=== PATIENT | female | born 1940 | race Caucasian/White ===

== ENCOUNTER 2016-08-22 05:24 | Observation (INO) | payer OTHER ==
[2016-08-22] VITALS (17 sets, daily range): BP systolic 70–155; BP diastolic 40–80; PULSE 72–98; RESP 16–22; TEMP 97.3–98.6; O2SAT 87–100
[~2016-08-22] VITALS: Ht 167.6 cm; Wt 60.0 kg
[~2016-08-22 05:24] MED LIST: ADVA500A INH; ALBU.5I NEB; ALBU6.7H INH; ALPR0.25 PO; ATOR10TA15 PO; ATRO1SOL11 LEFT EYE; B-122000 PO; BUTA1CAP PO; COLA100C3 PO; COMB0.2S LEFT EYE; CYMB60CA PO; D31000TA PO; FURO1TAB62 PO; GABA100C4 PO; LEVO125T4 PO; LISI-515 PO; META0.52 PO; MIRA33504 PO; PLAV75TA29 PO; POTA10TA8 PO; PROT40TA PO; SPIRCAP INH; TRAZ100T4 PO; VITATAB11 PO
[2016-08-22] MEDS ORDERED: SODIUM CHLOR 0.9% 1000 ML INJ 1,000 ML IV ONE (05:29)
[2016-08-22] MEDS ORDERED: SODIUM CHLORIDE 0.9% FLUSH 10 ML FLUSH IVF PRN (05:30)
[2016-08-22] MEDS ORDERED: ONDANSETRON HCL 4 MG/2 ML VIAL IVP ONE (05:30)
[2016-08-22] MEDS ORDERED: AMOX500T2 PO (05:39)
[2016-08-22] MEDS ORDERED: CEFEPIME INJ 2,000 MG in SODIUM CHLORIDE 0.9% INJ 100 ML IV ONE (06:00)
[2016-08-22] MEDS ORDERED: VANCOMYCIN INJ 1,000 MG in SODIUM CHLOR 0.9% 250 ML INJ 250 ML IV ONE (06:00)
[2016-08-22] MEDS ORDERED: ONDANSETRON HCL 4 MG/2 ML VIAL IV PUSH ONE (06:15)
--- NOTE | 2016-08-22 06:19 | RADRPT ---
EXAM DATE/TIME: 08/22/2016 06:09 [facility] COMPARISON: CT BRAIN W/O CONTRAST, November 05, 2013, 13:46. INDICATIONS : Altered mental status. RADIATION DOSE: 31.06 CTDIvol (mGy) MEDICAL HISTORY : Myocardial infarction. Chronic obstructive pulmonary disease. Cardiovascular disease SURGICAL HISTORY : Hysterectomy. Rt hip surgery ENCOUNTER: Initial ACUITY: 1 day PAIN SCALE: 0/10 LOCATION: cranial TECHNIQUE: Multiple contiguous axial images were obtained of the head. Using automated exposure control and adj ustment of the mA and/or kV according to patient size, radiation dose was kept as low as reasonably a chievable to obtain optimal diagnostic quality images. FINDINGS: CEREBRUM: The ventricles are normal for age. No evidence of midline shift, mass lesion, hemorrhage or acute in farction. No extra-axial fluid collections are seen. Chronic low attenuation again seen in the periv entricular white matter and old, small basal ganglia lacunar infarcts. POSTERIOR FOSSA: The cerebellum and brainstem are intact. The 4th ventricle is midline. The cerebellopontine angle i s unremarkable. EXTRACRANIAL: Chronic sclerosis of the right mastoid bone. Visualized left mastoid air cells and paranasal sinuses are clear. SKULL: The calvaria is intact. No evidence of skull fracture. CONCLUSION: No acute intracranial abnormality. Old basal ganglia and white matter ischemic changes. Lawson Smith MD on August 22, 2016 at 6:16 Board Certified Radiologist. This report was verified electronically.
--- NOTE | 2016-08-22 06:28 | RADRPT ---
EXAM DATE/TIME: 08/22/2016 05:42 [facility] COMPARISON: CHEST SINGLE AP, February 14, 2015, 15:24. INDICATIONS : Shortness of breath. MEDICAL HISTORY : Chronic obstructive pulmonary disease. Myocardial infarction. SURGICAL HISTORY : Hysterectomy. ENCOUNTER: Initial ACUITY: 1 day PAIN SCORE: 0/10 LOCATION: Bilateral chest FINDINGS: No infiltrate. Mild bibasilar scarring noted. No definite pleural fluid. No pneumothorax. Heart size stable, within normal limits. Thoracic aorta is mildly tortuous. CONCLUSION: No acute cardiopulmonary disease demonstrated. Lawosn Smith MD on August 22, 2016 at 6:25 Board Certified Radiologist. This report was verified electronically.
[2016-08-22] MEDS ORDERED: SODIUM CHLORID 0.9% 500 ML INJ 500 ML IV ONE (06:30)
--- NOTE | 2016-08-22 06:54 | PD ---
HPI Chief Complaint: Altered Mental Status Time Seen by Provider: 05:29 Travel History International Travel<30 days: No Contact w/Intl Traveler<30days: No Traveled to known affect area: No History of Present Illness HPI 76-year-old female presents to the emergency department from home by EMS transport after being found unresponsive in the bathroom. According to border measurer and cutter report has been called after he found his sitting on the toilet unresponsive. Upon their arrival patient was unresponsive they placed her supine and her GCS was 5 days administered IV fluids and her GCS improved to 12. Patient had blood sugar of 120. Patient was not identified to be febrile. cannot provide history and patient could only provide limited history. As mentation improved patient was found to have symmetric cartographic engineer strength and lower extremity motor strength. 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 Other history unable to be obtained. Once the patient arrived here patient denies any pain. Patient denies chest pain shortness of breath abdominal pain back pain or extremity pain denies any upper or lower extremity weakness. Patient noted to be hypotensive. Patient able to identify her name her birthdate and give simple yes no answers to questions does not appear to have any slurring of speech. PFSH Past Medical History Narrative Medical Arthritis COPD MS dyslipidemia hypertension CVA Arthritis: Yes Asthma: Yes Autoimmune Disease: No Anxiety: Yes Depression: Yes Heart Rhythm Problems: No Cancer: No Cardiovascular Problems: Yes (MS, CHOL) High Cholesterol: Yes Chest Pain: No Congestive Heart Failure: No COPD: Yes Cerebrovascular Accident: Yes Diabetes: No Diminished Hearing: Yes (R EAR DEAF;L EAR DIMINISHED) Endocrine: Yes Gastrointestinal Disorders: Yes (CONSTIPATION) Glaucoma: Yes Genitourinary: Yes Headaches: Yes Hepatitis: No Hiatal Hernia: No Hypertension: No Immune Disorder: No Implanted Vascular Access Dvce: Yes Medical other: Yes (HX. STROKE - 2009; ARTHRITIS) Musculoskeletal: Yes Neurologic: Yes Psychiatric: No Reproductive: No Respiratory: Yes (COPD) Immunizations Current: Yes Migraines: Yes Renal Failure: Yes Thyroid Disease: Yes (HYPO) Menopausal: Yes : 5 Para: 5 Past Surgical History Body Medical Devices: SCREWS IN LFET HIP Cardiac Surgery: No Ear Surgery: No Endocrine Surgery: No Eye Surgery: Yes (L EYE X 4) Genitourinary Surgery: No Gynecologic Surgery: Yes (HYSTERECTOMY; REMOVAL BENIGN TUMORS) Hysterectomy: Yes Neurologic Surgery: No Oral Surgery: Yes Pacemaker: No Tonsillectomy: Yes Other Surgery: Yes Social History Alcohol Use: No Tobacco Use: Yes (1/2 PPD) Substance Use: No (DENIED) Allergies-Medications (Allergen,Severity, Reaction): Coded Allergies: No Known Allergies (Unverified , 04/14/16) Reported Meds & Prescriptions Reported Meds & Active Scripts Active Reported Amoxicillin-Clavulanate 500-125 mg Tab 500 Mg PO BID Protonix (Pantoprazole Sodium) 40 Mg Tab 40 Mg PO DAILY Vitamin B Complex (B-Complex Vitamins) 1 Tab 1 Tab PO DAILY Trazodone (Trazodone HCl) 100 Mg Tab 100 Mg PO HS Spiriva Handihaler (Tiotropium Inh) 18 Mcg Cap 18 Mcg INH DAILY 1 capsule = 18 mcg Metamucil (Psyllium) 520 Mg Cap 1 Cap PO BID Potassium Chloride CR (Potassium Chloride) 10 Meq Tab 10 Meq PO DIRECTED Lisinopril 20 Mg Tab 20 Mg PO DAILY Levothyroxine (Levothyroxine Sodium) 125 Mcg Tab 125 Mcg PO DAILY Miralax Powder (Polyethylene Glycol 3350 Powder) 17 Gm Powd 17 Gm PO DAILY Mix and dissolve one measuring cap-ful (17 grams) in water or juice. Gabapentin 100 Mg Cap 100 Mg PO BID Lasix (Furosemide) 20 Mg Tab 30 Mg PO DIRECTED Colace (Docusate Sodium) 100 Mg Cap 100 Mg PO DAILY Cymbalta DR (Duloxetine HCl) 60 Mg Capdr 60 Mg PO DAILY B-12 (Cyanocobalamin) 2,000 Mcg Tab 2,000 Mcg PO DAILY Combigan Opth Drops (Brimonidine-Timolol Opth Drops) 0.2-0.5% Soln 1 Drop LEFT EYE Q12HR Plavix (Clopidogrel Bisulfate) 75 Mg Tab 75 Mg PO DAILY D3 (Cholecalciferol) 1,000 Unit Tab 1 Tab PO DAILY Atropine Opth Drops 1% Soln 1 Drop LEFT EYE QID Atorvastatin (Atorvastatin Calcium) 10 Mg Tab 10 Mg PO HS Alprazolam 0.25 Mg Tab 0.25 Mg PO HS PRN Albuterol Neb (Albuterol Sulfate) 2.5 Mg/0.5 Ml Neb 2.5 Mg NEB Q6HR NEB Note: The Albuterol Sulfate Inhalation Solution is concentrated and must be diluted. Read complete instructions carefully before using. Proventil Hfa 6.7 GM Inh (Albuterol Sulfate) 90 Mcg/Act Aer 2 Puff INH Q4-6H PRN Advair Diskus Inh (Fluticasone-Salmeterol Inh) 500-50 Mcg/Blist Aer 1 Puff INH BID Rinse mouth after use. Fioricet (Tblouxbdov-Hgjhdofqtcxjm-Nlbvsbyv) 50-300-40 Mg Cap 1 Cap PO Q4H PRN Review of Systems ROS Limitations: Clinical Condition, Altered Mental Status Physical Exam Narrative GENERAL: Elderly well-appearing female in no acute respiratory distress GCS 13 SKIN: Cool and dry. HEAD: Atraumatic. Normocephalic. EYES: Pupils right is round and reactive to light left is ovoid and reactive to light consistent with previous eye surgery. No scleral icterus. No injection or drainage. ENT: No nasal bleeding or discharge. Mucous membranes pink and moist. NECK: Trachea midline. No JVD. Supple no meningismus no nuchal rigidity. CARDIOVASCULAR: Regular rate and rhythm. RESPIRATORY: No accessory muscle use. Clear to auscultation. Breath sounds equal bilaterally. GASTROINTESTINAL: Abdomen soft, non-tender, nondistended. Hepatic and splenic margins not palpable. No palpable pulsatile mass. MUSCULOSKELETAL: Extremities without clubbing, cyanosis, or edema. No obvious deformities. NEUROLOGICAL: Awake and mildly confused. No obvious cranial nerve deficits. Motor grossly within normal limits. Five out of 5 muscle strength in the arms and legs. Normal speech. PSYCHIATRIC: Appropriate mood and affect; insight and judgment normal. Data Data Last Documented VS Vital Signs Date Time Temp Pulse Resp B/P Pulse Ox O2 Delivery O2 Flow Rate FiO2 08/22/16 07:14 79 16 108/54 87 Nasal Cannula 2 08/22/16 05:26 98.3 Orders Electrocardiogram (08/22/16 05:29) Complete Blood Count With Diff (08/22/16 05:29) Comprehensive Metabolic Panel (08/22/16 05:29) Magnesium (Mg) (08/22/16 05:29) Ckmb (Isoenzyme) Profile (08/22/16 05:29) Troponin I (08/22/16 05:29) Act Partial Throm Time (Ptt) (08/22/16 05:29) Prothrombin Time / Inr (Pt) (08/22/16 05:29) Urinalysis - C+S If Indicated (08/22/16 05:29) Chest, Single Ap (08/22/16 05:29) Ct Brain W/O Iv Contrast(Rout) (08/22/16 05:29) Blood Glucose (08/22/16 05:29) Ecg Monitoring (08/22/16 05:29) Iv Access Insert/Monitor (08/22/16 05:29) Oximetry (08/22/16 05:29) Ondansetron Inj (Zofran Inj) (08/22/16 05:30) Sodium Chloride 0.9% Flush (Ns Flush) (08/22/16 05:30) Sodium Chlor 0.9% 1000 Ml Inj (Ns 1000 M (08/22/16 05:29) Blood Culture (08/22/16 05:29) Lactic Acid (08/22/16 05:29) Enteric Path (Stool) (08/22/16 05:29) Type And Screen (08/22/16 05:32) Cefepime Inj (Maxipime Inj) (08/22/16 06:00) Vancomycin Inj (Vancomycin Inj) (08/22/16 06:00) Ondansetron Inj (Zofran Inj) (08/22/16 06:15) Sodium Chlorid 0.9% 500 Ml Inj (Ns 500 M (08/22/16 06:30) Ct Abd/Pel W Iv Contrast(Rout) (08/22/16 ) Complete Blood Count With Diff (08/22/16 07:01) Urine Culture (08/22/16 06:41) Iohexol 350 Inj (Omnipaque 350 Inj) (08/22/16 07:55) Labs Laboratory Tests Test 08/22/16 08/22/16 08/22/16 08/22/16 05:45 05:50 06:41 07:01 Prothrombin Time 15.2 SEC Prothromb Time International 1.4 RATIO Ratio Activated Partial 51.3 SEC Thromboplast Time Lactic Acid Level 1.4 mmol/L Blood Type O POSITIVE Antibody Screen NEGATIVE Urine Color YELLOW Urine Turbidity CLEAR Urine pH 6.0 Urine Specific [place] 1.010 Urine Protein NEG mg/dL Urine Glucose (UA) NEG mg/dL Urine Ketones NEG mg/dL Urine Occult Blood NEG Urine Nitrite NEG Urine Bilirubin NEG Urine Urobilinogen LESS THAN 2.0 MG/DL Urine Leukocyte Esterase LARGE Urine RBC 4 /hpf Urine WBC 10 /hpf Urine Amorphous Sediment RARE Urine Hyaline Casts 12 /lpf Microscopic Urinalysis Comment CATH-CULTURE IND White Blood Count 12.0 TH/MM3 Corrected White Blood Count TH/MM3 Red Blood Count 3.89 MIL/MM3 Hemoglobin 10.9 GM/DL Hematocrit 34.3 % Mean Corpuscular Volume 88.3 FL Mean Corpuscular Hemoglobin 27.9 PG Mean Corpuscular Hemoglobin 31.7 % Concent Red Cell Distribution Width 14.4 % Platelet Count 204 TH/MM3 Mean Platelet Volume 8.0 FL Neutrophils (%) (Auto) 81.6 % Lymphocytes (%) (Auto) 8.7 % Monocytes (%) (Auto) 9.2 % Eosinophils (%) (Auto) 0.2 % Basophils (%) (Auto) 0.3 % Neutrophils # (Auto) 9.8 TH/MM3 Lymphocytes # (Auto) 1.0 TH/MM3 Monocytes # (Auto) 1.1 TH/MM3 Eosinophils # (Auto) 0.0 TH/MM3 Basophils # (Auto) 0.0 TH/MM3 CBC Comment DIFF FINAL Differential Comment Hematology Comments Sodium Level 148 MEQ/L Potassium Level 3.4 MEQ/L Chloride Level 116 MEQ/L Carbon Dioxide Level 26.6 MEQ/L Anion Gap 5 MEQ/L Blood Urea Nitrogen 18 MG/DL Creatinine 0.86 MG/DL Estimat Glomerular Filtration 64 ML/MIN Rate Random Glucose 116 MG/DL Calcium Level 7.6 MG/DL Magnesium Level 1.8 MG/DL Total Bilirubin 0.4 MG/DL Aspartate Amino Transf 10 U/L (AST/SGOT) Alanine Aminotransferase 13 U/L (ALT/SGPT) Alkaline Phosphatase 66 U/L Total Creatine Kinase 27 U/L Troponin I 0.05 NG/ML Total Protein 4.7 GM/DL Albumin 2.5 GM/DL [facility] Medical Decision Making Medical Screen Exam Complete: Yes Emergency Medical Condition: Yes Medical Record Reviewed: Yes Interpretation(s) EKG sinus rhythm rate [address] depression laterally lead 1 aVL V5 V6 no acute ST elevation or injury pattern change Last Impressions Head CT 08/22/16528 Signed Impressions: Service Date/Time: Monday, August 22, 2016 06:09 - CONCLUSION: No acute intracranial abnormality. Old basal ganglia and white matter ischemic changes. Lawson Smith MD Chest X-Ray 08/22/16528 Signed Impressions: Service Date/Time: Monday, August 22, 2016 05:42 - CONCLUSION: No acute cardiopulmonary disease demonstrated. Lawson Smith MD Lactic acid: 1.4 CBC is automated differential anemia hemoglobin 7.6 with normal total white cell count mild, cytopenia 142,000 with marked monocytosis by automated differential 26.6% Coagulation studies normal range Differential Diagnosis Syncope, arrhythmia, ACS, myocardial infarction, GI bleed, CVA, ICH, sepsis Narrative Course Patient presents after IV fluid bolus able to identify her name and date of denies any pain denies allergies denies shortness of breath. Additional IV access obtained specimens collected including blood cultures and lactic acid and patient given presumptive IV antibiotic along with additional IV fluids Patient sent for stat CT brain noncontrast reading per radiologist no acute process chest x-ray reveals no lobar infiltrate no vascular congestion no cardiac enlargement EKG sinus rhythm rate 80 to eyes R prime nonspecific no acute ST elevation Patient returns from CT the pressure remains low however level of consciousness continues to improve family at bedside At 6:50 AM blood pressure systolic is 110 mmHg daughters remain at bedside and daughter who is with her last evening states that she was recently placed on Vitas for end-stage COPD with continued tobacco use. Patient was recently placed on multiple laxatives due to chronic constipation. Another daughter identifies that patient has had previous abdominal surgery and was identified that she had a pelvic mass. With this information a CT abdomen and pelvis will be added to patient's evaluation and workup however she denies any abdominal pain and has no palpable abdominal tenderness. Stool was collected for Hemoccult testing which was found to be negative for blood. @7:05 AM GCS is 15. Call placed to have his service for observation admission and is patient's pressure has normalized; call placed to [employer] service will send Vitas nurse [facility] Point of Care Internal Pos. & Neg. Controls: Passed Fecal Specimen Occult Blood: Negative Physician Communication Physician Communication call placed to [facility] discussed Dr Hernandez; discussed Vitas service nurse [place], part of [employer] for 9 days; sending Vitas nurse Diagnosis Primary Impression: Syncope and collapse Additional Impressions: COPD (chronic obstructive pulmonary disease) Qualified Code: J44.9 - Chronic obstructive pulmonary disease, unspecified COPD type Dehydration Hypernatremia UTI (urinary tract infection) Qualified Code: N30.00 - Acute cystitis without hematuria Admitting Information Admitting Physician Requests: Admit Erin Crenshaw MD Aug 22, 2016 06:54
[2016-08-22 07:25] LABS: AUTOMATED NEUTROPHIL # 9.8 TH/MM3 (1.8-7.7); BASOPHIL % 0.3 % (0.0-2.0); EOSINOPHIL % 0.2 % (0.0-4.0); HEMATOCRIT 34.3 % (35.0-46.0); HEMO FLAGS DIFF FINAL; LYMPH % 8.7 % (9.0-44.0); MEAN CELL VOLUME 88.3 FL (80.0-100.0); MEAN CORPUSCULAR HEMOGLOBIN 27.9 PG (27.0-34.0); MEAN CORPUSCULAR HGB CONC 31.7 % (32.0-36.0); MONO % 9.2 % (0.0-8.0); NEUT % 81.6 % (16.0-70.0); PLATELET COUNT 204 TH/MM3 (150-450); RED BLOOD COUNT 3.89 MIL/MM3 (4.00-5.30); RED CELL DISTRIBUTION WIDTH 14.4 % (11.6-17.2)
[2016-08-22 07:30] LABS: BLOOD, URINE NEG (NEG); COMMENT (UR) CATH-CULTURE IND; CULTURE IF INDICATED CATH CULTURE IND; GLUCOSE,URINE NEG (NEG); HYALINE CAST, URINE 12 /lpf (RARE); KETONE, URINE NEG (NEG); NITRITE,URINE NEG (NEG); URINE COLOR YELLOW (YELLW/STRAW)
[2016-08-22 07:34] LABS: ALT (GPT) 13 U/L (10-53); ANION GAP 5 MEQ/L (5-15); AST (GOT) 10 U/L (15-37); BICARBONATE 26.6 MEQ/L (21.0-32.0); BLOOD UREA NITROGEN 18 MG/DL (7-18); CHLORIDE 116 MEQ/L (98-107); GLOMERULAR FILTRATION RATE 64 ML/MIN (>89); MAGNESIUM 1.8 MG/DL (1.5-2.5); POTASSIUM 3.4 MEQ/L (3.5-5.1); SODIUM (NA) 148 MEQ/L (136-145)
[2016-08-22 07:38] LABS: ALKALINE PHOSPHATASE 66 U/L (45-117); TOTAL BILIRUBIN ADULT 0.4 MG/DL (0.2-1.0)
[2016-08-22 07:43] LABS: CREATINE KINASE 27 U/L (26-192)
[2016-08-22] MEDS ORDERED: IOHEXOL 350 MG/ML 10 ML VIAL (for RAD DIAG) IV ONE (07:55)
--- NOTE | 2016-08-22 08:15 | RADRPT ---
EXAM DATE/TIME: 08/22/2016 07:50 [facility] COMPARISON: CT ABDOMEN & PELVIS W CONTRAST, August 22, 2014, 16:12. CT ABDOMEN & PELVIS W CONTRAST, April 14, 2016, 16:23. INDICATIONS : Evaluate for obstruction. IV CONTRAST: 70 cc Omnipaque 350 (iohexol) IV ORAL CONTRAST: No oral contrast ingested. RADIATION DOSE: 8.32 CTDIvol (mGy) MEDICAL HISTORY : Stroke. Renal failure, acute. SURGICAL HISTORY : None. ENCOUNTER: Initial ACUITY: 1 day PAIN SCALE: 6/10 LOCATION: Bilateral abdomen. TECHNIQUE: Volumetric scanning of the abdomen and pelvis was performed. Using automated exposure control and ad justment of the mA and/or kV according to patient size, radiation dose was kept as low as reasonably achievable to obtain optimal diagnostic quality images. FINDINGS: LOWER LUNGS: Mild atelectasis at lung bases. LIVER: Several scattered subcentimeter hypodensities in the right lobe of the liver are unchanged, likely re presenting cysts. Gallbladder is within normal limits. SPLEEN: Splenic cyst unchanged. Splenic size within normal limits. PANCREAS: Within normal limits. KIDNEYS: Normal in size and shape. There is no mass, stone or hydronephrosis. ADRENAL GLANDS: 9 mm right adrenal nodule is unchanged. Left adrenal gland within normal limits. VASCULAR: Diffuse tortuosity and calcification of the abdominal aorta. Focal relative dilatation measuring up t o 1.9 cm in diameter is seen distally. This is unchanged. Calcified splenic artery aneurysm unchanged . BOWEL/MESENTERY: Numerous colonic diverticula. No evidence of acute diverticulitis. No bowel dilatation. No free air o r free fluid. ABDOMINAL WALL: Within normal limits. RETROPERITONEUM: There is no lymphadenopathy. BLADDER: No wall thickening or mass. REPRODUCTIVE: Within normal limits. INGUINAL: There is no lymphadenopathy or hernia. MUSCULOSKELETAL: Prominent degenerative linings of the lumbar spine. Metallic screws in the left femoral neck. Moderat e osteoarthritic findings of the hips. CONCLUSION: 1. Colonic diverticulosis but no evidence of acute diverticulitis. 2. Diffuse atherosclerotic disease. Focal relative mild dilatation of the distal abdominal aorta unch anged. Calcified splenic artery aneurysm unchanged. 3. Subcentimeter right adrenal nodule unchanged for greater than 2 years, indicating an adenoma. 4. Degenerative findings the lumbar spine and osteoarthritic findings in the hips. 5. No acute findings in the abdomen or pelvis. Dima Ramos MD on August 22, 2016 at 7:58 Board Certified Radiologist. This report was verified electronically.
[2016-08-22] MEDS ORDERED: SODIUM CHLORIDE 0.9% FLUSH 10 ML FLUSH IV FLUSH PRN (09:15)
[2016-08-22] MEDS ORDERED: ACETAMINOPHEN 325 MG TAB PO PRN (09:15)
[2016-08-22] MEDS ORDERED: NALOXONE HCL 0.4 MG/ML AMP IV PRN (09:15)
[2016-08-22] MEDS: HEPARIN SODIUM - SQ 10,000 UNITS/ML VIAL SQ SCH ×2 (09:40→18:22)
[2016-08-22] MEDS ORDERED: POTASSIUM CHLORIDE 20 MEQ CONTROLLED RELEASE TAB PO ONE (12:30)
[2016-08-22] MEDS ORDERED: RESP: ALBUTEROL 2.5 MG/IPRATROPIUM 0.5 MG NEB (PRN) NEB (12:30)
[2016-08-22] MEDS ORDERED: SODIUM CHLOR 0.9% 1000 ML INJ 1,000 ML IV SCH (12:30)
--- NOTE | 2016-08-22 12:39 | HHI.HP ---
. HPI Service [facility] Agustín Fitzpatrick MD Admission Diagnosis mult syncopal episodes Diagnoses: Chief Complaint: Syncope Travel History International Travel<30 Days: No Contact w/Intl Traveler <30 Da: No Traveled to Known Affected Are: No History of Present Illness Mrs. Cordova is a 76-year-old female with a known medical history of end-stage chronic obstructive pulmonary disease, previous [place] with stent placement, hypertension, prior CVA and currently on [facility]ice who presented to the emergency department by [facility] after being found unresponsive at home. Patient states that she has had ongoing abdominal pain for several days now with associated chronic constipation and has been taking multiple laxatives over the past few days. Supposedly while patient was on the toilet having a bowel movement she began to feel dizzy, lightheaded and remembers blacking out being brought here thereafter. She denies any associated nausea, vomiting or diarrhea. Also denies any associated chest pain, palpitations, recent fevers, chills or cough. Presently, patient is seen and examined by myself and Dr. Hernandez in emergency room with daughter at bedside. She is awake and alert. Dizziness and lightheadedness now resolved. Patient is currently on 4 L NC with the use of oxygen at home as needed. Review of Systems Gastrointestinal: COMPLAINS OF: Abdominal pain Except as stated in HPI: all other systems reviewed are Neg Past Family Social History Past Medical History Arthritis History of [place] Dyslipidemia Hypertension History of CVA End-stage COPD Hypothyroidism Glaucoma Right ear deafness Past Surgical History Hysterectomy Tonsillectomy Left eye surgery Left hip orthopedic surgery Reported Medications Amoxicillin-Clavulanate 500-125 mg Tab 500 Mg PO BID Protonix (Pantoprazole Sodium) 40 Mg Tab 40 Mg PO DAILY Vitamin B Complex (B-Complex Vitamins) 1 Tab 1 Tab PO DAILY Trazodone (Trazodone HCl) 100 Mg Tab 100 Mg PO HS Spiriva Handihaler (Tiotropium Inh) 18 Mcg Cap 18 Mcg INH DAILY 1 capsule = 18 mcg Metamucil (Psyllium) 520 Mg Cap 1 Cap PO BID Potassium Chloride CR (Potassium Chloride) 10 Meq Tab 10 Meq PO DIRECTED Lisinopril 20 Mg Tab 20 Mg PO DAILY Levothyroxine (Levothyroxine Sodium) 125 Mcg Tab 125 Mcg PO DAILY Miralax Powder (Polyethylene Glycol 3350 Powder) 17 Gm Powd 17 Gm PO DAILY Mix and dissolve one measuring cap-ful (17 grams) in water or juice. Gabapentin 100 Mg Cap 100 Mg PO BID Lasix (Furosemide) 20 Mg Tab 30 Mg PO DIRECTED Colace (Docusate Sodium) 100 Mg Cap 100 Mg PO DAILY Cymbalta DR (Duloxetine HCl) 60 Mg Capdr 60 Mg PO DAILY B-12 (Cyanocobalamin) 2,000 Mcg Tab 2,000 Mcg PO DAILY Combigan Opth Drops (Brimonidine-Timolol Opth Drops) 0.2-0.5% Soln 1 Drop LEFT EYE Q12HR Plavix (Clopidogrel Bisulfate) 75 Mg Tab 75 Mg PO DAILY D3 (Cholecalciferol) 1,000 Unit Tab 1 Tab PO DAILY Atropine Opth Drops 1% Soln 1 Drop LEFT EYE QID Atorvastatin (Atorvastatin Calcium) 10 Mg Tab 10 Mg PO HS Alprazolam 0.25 Mg Tab 0.25 Mg PO HS PRN Albuterol Neb (Albuterol Sulfate) 2.5 Mg/0.5 Ml Neb 2.5 Mg NEB Q6HR NEB Note: The Albuterol Sulfate Inhalation Solution is concentrated and must be diluted. Read complete instructions carefully before using. Proventil Hfa 6.7 GM Inh (Albuterol Sulfate) 90 Mcg/Act Aer 2 Puff INH Q4-6H PRN Advair Diskus Inh (Fluticasone-Salmeterol Inh) 500-50 Mcg/Blist Aer 1 Puff INH BID Rinse mouth after use. Fioricet (Hxkqepidep-Kjektasjsghcw-Uwmocqhb) 50-300-40 Mg Cap 1 Cap PO Q4H PRN Allergies: Coded Allergies: No Known Allergies (Unverified , 04/14/16) Active Ordered Medications Current Medications Medications (Trade) Dose Ordered Sig/Miki Route Start Time Stop Time Status Last Admin (NS Flush) 2 ml UNSCH PRN IVF 08/22/16 05:30 (NS Flush) 2 ml UNSCH PRN IV FLUSH 08/22/16 09:15 (NS Flush) 2 ml BID IV FLUSH 08/22/16 21:00 (Tylenol) 650 mg Q4H PRN PO 08/22/16 09:15 08/22/16 09:40 (Heparin Inj) 5,000 units Q8H SQ 08/22/16 10:00 08/22/16 09:40 Naloxone HCl 0.4 mg 0.4 mg UNSCH PRN IV 08/22/16 09:15 (NS 1000 ml Inj) 1,000 ml @ 42 mls/hr [id number] IV 08/22/16 12:30 08/23/16 00:24 (Lipitor) 10 mg HS PO 08/22/16 21:00 (Plavix) 75 mg DAILY PO 08/23/16 09:00 (Cymbalta Dr) 60 mg DAILY PO 08/23/16 09:00 (Neurontin) 100 mg BID PO 08/22/16 21:00 (Synthroid) 125 mcg DAILY PO 08/23/16 09:00 (Prinivil) 20 mg DAILY PO 08/23/16 09:00 (Protonix) 40 mg DAILY PO 08/23/16 09:00 (Spiriva Inh) 18 mcg DAILY INH 08/23/16 09:00 Non-Formulary Medication 1 drop Q12HR LEFT EYE 08/22/16 21:00 UNV Non-Formulary Medication 1 cap Q4H PRN PO 08/22/16 12:30 UNV Non-Formulary Medication 1 puff BID INH 08/22/16 21:00 UNV (Levaquin) 500 mg DAILY PO 08/23/16 09:00 08/26/16 08:59 Family History Patient denies any significant family medical history. Social History Patient lives at home with , currently on [facility] hospice program for end- stage COPD. Patient states that she still continues to smoke cigarettes, 1/2 ppd. Denies any alcohol or illicit drug use. Physical Exam Vital Signs Vital Signs Date Time Temp Pulse Resp B/P Pulse Ox O2 Delivery O2 Flow Rate FiO2 08/22/16 10:51 74 16 149/65 100 Nasal Cannula 4 08/22/16 10:22 15 08/22/16 09:27 84 16 123/70 98 Nasal Cannula 2 08/22/16 08:14 79 16 124/74 100 Nasal Cannula 2 08/22/16 07:14 79 16 108/54 97 Nasal Cannula 2 08/22/16 06:44 78 16 110/53 98 Nasal Cannula 2 08/22/16 05:53 82 18 87/51 98 Nasal Cannula 2 08/22/16 05:34 98 22 81/50 98 Nasal Cannula 2 08/22/16 05:32 98 Nasal Cannula 2 08/22/16 05:26 98.3 83 18 70/40 94 Physical Exam GENERAL: Well-nourished, well-developed patient, on 4 L NC with shortness of breath at rest. SKIN: Warm and dry. No rash. HEENT: Normocephalic. Atraumatic. Pupils equal and round. No scleral icterus. No injection or drainage. No nasal bleeding or discharge. Mucous membranes pink and moist. Supple. Trachea midline. CARDIOVASCULAR: Regular rate and rhythm. S1, S2 noted. No murmur appreciated. RESPIRATORY: Wheezing noted throughout. Breath sounds equal bilaterally. GASTROINTESTINAL: Abdomen soft, tender to palpation throughout. No rebound tenderness noted. Nondistended. Normoactive bowel sounds x4. MUSCULOSKELETAL: No obvious deformities. Extremities without clubbing, cyanosis , or edema. NEUROLOGICAL: Awake and alert. No obvious cranial nerve deficits. Motor grossly within normal limits. 5/5 muscle strength in bilateral upper and lower extremities. Normal speech. PSYCHIATRIC: Appropriate mood and affect; insight and judgment normal. Laboratory Laboratory Tests Test 08/22/16 08/22/16 08/22/16 08/22/16 05:45 05:50 06:41 07:01 White Blood Count 12.0 Corrected White Blood Count Red Blood Count 3.89 Hemoglobin 10.9 Hematocrit 34.3 Mean Corpuscular Volume 88.3 Mean Corpuscular Hemoglobin 27.9 Mean Corpuscular Hemoglobin 31.7 Concent Red Cell Distribution Width 14.4 Platelet Count 204 Mean Platelet Volume 8.0 Neutrophils (%) (Auto) 81.6 Lymphocytes (%) (Auto) 8.7 Monocytes (%) (Auto) 9.2 Eosinophils (%) (Auto) 0.2 Basophils (%) (Auto) 0.3 Neutrophils # (Auto) 9.8 Lymphocytes # (Auto) 1.0 Monocytes # (Auto) 1.1 Eosinophils # (Auto) 0.0 Basophils # (Auto) 0.0 CBC Comment DIFF FINAL Differential Comment Prothrombin Time Prothromb Time International Ratio Activated Partial Thromboplast Time Lactic Acid Level 1.4 Blood Type O POSITIVE Antibody Screen NEGATIVE Urine Color YELLOW Urine Turbidity CLEAR Urine pH 6.0 Urine Specific [place] 1.010 Urine Protein NEG Urine Glucose (UA) NEG Urine Ketones NEG Urine Occult Blood NEG Urine Nitrite NEG Urine Bilirubin NEG Urine Urobilinogen LESS THAN 2.0 Urine Leukocyte Esterase LARGE Urine RBC 4 Urine WBC 10 Urine Amorphous Sediment RARE Urine Hyaline Casts 12 Microscopic Urinalysis Comment CATH-CULTURE IND Hematology Comments Sodium Level 148 Potassium Level 3.4 Chloride Level 116 Carbon Dioxide Level 26.6 Anion Gap 5 Blood Urea Nitrogen 18 Creatinine 0.86 Estimat Glomerular Filtration 64 Rate Random Glucose 116 Calcium Level 7.6 Magnesium Level 1.8 Total Bilirubin 0.4 Aspartate Amino Transf 10 (AST/SGOT) Alanine Aminotransferase 13 (ALT/SGPT) Alkaline Phosphatase 66 Total Creatine Kinase 27 Troponin I 0.05 Total Protein 4.7 Albumin 2.5 Test 08/22/16 08/22/16 07:37 09:50 Prothrombin Time 11.0 Prothromb Time International 1.0 Ratio Activated Partial 24.0 Thromboplast Time Total Creatine Kinase 26 Troponin I 0.05 Date/Time Procedure Status Source Growth 08/22/16 06:41 Urine Culture Received Urine Catheterized Urine Pending 08/22/16 06:30 Received Stool Stool Pending 08/22/16 05:45 Aerobic Blood Culture Received Blood Peripheral Pending 08/22/16 05:45 Anaerobic Blood Culture Received Blood Peripheral Pending Result Diagram: 08/22/16 0708/22/16 07 Imaging Last Impressions Head CT 08/22/16528 Signed Impressions: Service Date/Time: Monday, August 22, 2016 06:09 - CONCLUSION: No acute intracranial abnormality. Old basal ganglia and white matter ischemic changes. Lawson Smith MD Chest X-Ray 08/22/16 0529 Signed Impressions: Service Date/Time: Monday, August 22, 2016 05:42 - CONCLUSION: No acute cardiopulmonary disease demonstrated. Lawson Smith MD Abdomen/Pelvis CT 08/22/16 0000 Signed Impressions: Service Date/Time: Monday, August 22, 2016 07:50 - CONCLUSION: 1. Colonic diverticulosis but no evidence of acute diverticulitis. 2. Diffuse atherosclerotic disease. Focal relative mild dilatation of the distal abdominal aorta unchanged. Calcified splenic artery aneurysm unchanged. 3. Subcentimeter right adrenal nodule unchanged for greater than 2 years, indicating an adenoma. 4. Degenerative findings the lumbar spine and osteoarthritic findings in the hips. 5. No acute findings in the abdomen or pelvis. Dima Ramos MD Septic Shock Reassessment Heart: Regular rate and rhythm Lungs: Other (wheezing) Skin: Warm, Dry Assessment and Plan Assessment and Plan Mrs. Cordova is a 76-year-old female with a known medical history of end-stage chronic obstructive pulmonary disease, previous [place] with stent placement, hypertension, prior CVA and currently on [facility]ice who presented to the emergency department by [facility] after being found unresponsive at home. Patient states that she has had ongoing abdominal pain for several days now with associated constipation and has been taking multiple laxatives over the past few days. Supposedly while patient was having a bowel movement she began to feel dizzy, lightheaded and remembers blacking out. Syncope with dehydration secondary to frequent laxative use with possible vasovagal response - Head CT resulted and images reviewed by me, no acute intracranial abnormality. Old basal ganglia and white matter ischemic changes. - CT abdomen/pelvis resulted and images reviewed by me, colonic diverticulosis but no evidence of acute diverticulitis; diffuse atherosclerotic disease. Focal relative mild dilatation of the distal abdominal aorta unchanged. Calcified splenic artery aneurysm unchanged. Subcentimeter right adrenal nodule unchanged for greater than 2 years, indicating an adenoma; Degenerative findings the lumbar spine and osteoarthritic findings in the hips; No acute findings in the abdomen or pelvis. - 1.5 L NS bolus given in ED. Start IVF NS at 42 ml/hr for total of 500ml. Monitor overload. Suspected UTI vs Asymptomatic bacteruria , UA resulted with large amount of leukocyte esterase. Urine culture pending. - WBC 12.0. Redraw this afternoon. - Lactic acid 1.4. - Cefepime 2 g IV x 1 given in ED. Vancomycin 1 g IV x 1 given in ED. - considering syncopal episode might be related to UTI, will start Levaquin 500 mg PO daily x 3 days. - Continue IVF. - Afebrile at this time. Monitor fevers. - Blood cultures ordered and pending - UA with large amount of leukocyte esterase, urine culture pending - Enteric path stool pending. - CBC and BMP in am. Hypokalemia, mild: Likely secondary to dehydration. Potassium 3.4 on 08/22. Replace with KCL 40 meq PO x 1 now. Recheck BMP later today and in am. Hypernatremia, mild: Likely secondary to dehydration. Sodium 148. Continue IVF. Recheck this afternoon. End-stage chronic obstructive pulmonary disease - Chest x-ray resulted and imaged reviewed by me, no acute cardiopulmonary disease demonstrated. - DuoNebs scheduled and PRN - Scheduled Symbicort and Spiriva inhaler. - Continue O2, titrate to keep SpO2 >92%. Hypertension, chronic - Upon presentation patient was hypotensive, 70/40. Hypotension has now resolved after 1.5 L IVF bolus. - Monitor closely. Continue IVF NS at 42 ml/hr x 500 ml. Watch for overload. - Hold lisinopril until bp picks up Coronary artery disease with previous [place] with stent placement, on Plavix. - EKG done and reviewed by me, sinus rhythm with possible right ventricular conduction delay. No arrhythmias noted. - Trending troponin, 0.05--> 0.05; CPK 27--> 26. Awaiting last set. - Cardiac telemetry, monitor for arrhythmias. Mild anemia, chronic: Hemoglobin 10.9/Hematocrit 34.3. No obvious signs of bleeding. Continue to monitor. CBC in am. Hemoccult negative. Other chronic medical conditions include hypothyroidism , dyslipidemia, depression, and anxiety are all stable at this time, continue home medications as indicated. Will continue to monitor. GI Prophylaxis: Protonix 40 mg PO daily. DVT prophylaxis: Heparin 5,000 units sq Q8hr. SCD/sTEDs. Written by Whit Banuelos, acting as scribe for Dr. Hernandez on 08/22/16 at 1239. Code Status Do not resuscitate Discussed Condition With Patient Whit Banuelos Aug 22, 2016 12:39 Silvio Hernandez MD Aug 22, 2016 16:04 Whit Banuelos Aug 22, 2016 12:39 Silvio Hernandez MD Aug 22, 2016 16:04
[2016-08-22] MEDS ORDERED: ACETAMIN 325 MG/BUTALBITAL 50 MG/CAFFEINE 40 MG TAB PO PRN (13:00)
[2016-08-22] MEDS: RESP: ALBUTEROL 2.5 MG/IPRATROPIUM 0.5 MG NEB (SCH) NEB ×2 (13:35→19:20)
[2016-08-22] MEDS: BUDESONIDE-FORMOTEROL 160/4.5 MCG INHALER INH SCH ×2 (13:47→20:38)
[2016-08-22 18:05] LABS: BICARBONATE 25.8 MEQ/L (21.0-32.0); MAGNESIUM 1.9 MG/DL (1.5-2.5); POTASSIUM 3.7 MEQ/L (3.5-5.1)
--- NOTE | 2016-08-22 18:34 | EKG ---
Date Performed: 08/22/2016 Time Performed: 09:47:10 PTAGE: 76 years EKG: Sinus rhythm POSSIBLE RIGHT VENTRICULAR CONDUCTION DELAY NONSPECIFIC ST & T-WAVE ABNORMALITY BORDERLINE ECG PREVIOUS TRACING : 08/22/2016 05.33 Compared to prior tracing no significant change DOCTOR: Nya Tatum Interpretating Date/Time 08/22/2016 18:32:58
--- NOTE | 2016-08-22 18:38 | EKG ---
Date Performed: 08/22/2016 Time Performed: 05:33:23 PTAGE: 76 years EKG: Sinus rhythm POSSIBLE RIGHT VENTRICULAR CONDUCTION DELAY MODERATE ST DEPRESSION ABNORMAL ECG PREVIOUS TRACING : 04/14/2016 16.29 Compared to prior tracing no significant change DOCTOR: Nya Tatum Interpretating Date/Time 08/22/2016 18:36:59
[2016-08-22] MEDS ORDERED: NITROGLYCERIN 0.4 MG SL 25 TABS/BTL SL ONE (20:15)
[2016-08-22] MEDS ORDERED: MORPHINE SULFATE 4 MG/ML INJ IV PUSH ONE (20:15)
--- NOTE | 2016-08-22 20:16 | HHI.PR ---
Blank section for building Called by nursing the patient is having 10 out of 10 chest pain for the past 5- 10 minutes. Chest pain r/o ACS Stat EKG obtained shows sinus rhythm rate of [address] changes. Nitroglycerin sublingual times one and aspirin 325 mg ordered serial troponin, serial EKG and check lipid panel in a.m. Continue telemetry monitoring and monitor patient closely Discussed with Rica Keen Aug 22, 2016 20:15
[2016-08-22] MEDS: GABAPENTIN 100 MG CAP PO SCH (20:38)
[2016-08-22] MEDS: ASPIRIN 325 MG TAB PO SCH (20:38)
[2016-08-22] MEDS: SODIUM CHLORIDE 0.9% FLUSH 10 ML FLUSH IV FLUSH SCH (20:39)
[2016-08-22] MEDS ORDERED: TIMOLOL LEFT EYE SCH (21:00)
[2016-08-22] MEDS ORDERED: BRIMONIDINE LEFT EYE SCH (21:00)
[2016-08-22] MEDS ORDERED: ATORVASTATIN 10 MG TAB PO SCH (21:00)
[2016-08-23 00:56] VITALS: BP 132/62; PULSE 72; RESP 19; TEMP 98.1; O2SAT 98
[2016-08-23] MEDS: HEPARIN SODIUM - SQ 10,000 UNITS/ML VIAL SQ SCH ×2 (01:06→10:47)
[2016-08-23 05:28] VITALS: BP 127/64; PULSE 73; RESP 19; TEMP 98.1; O2SAT 95
[2016-08-23 07:35] VITALS: BP 169/83; PULSE 72; RESP 19; TEMP 97.9; O2SAT 94
[2016-08-23] MEDS: RESP: ALBUTEROL 2.5 MG/IPRATROPIUM 0.5 MG NEB (SCH) NEB ×2 (07:47→10:51)
[2016-08-23 07:48] VITALS: O2SAT 97
[2016-08-23] MEDS: SODIUM CHLORIDE 0.9% FLUSH 10 ML FLUSH IV FLUSH SCH (08:46)
[2016-08-23] MEDS: GABAPENTIN 100 MG CAP PO SCH (08:47)
[2016-08-23] MEDS: ASPIRIN 325 MG TAB PO SCH (08:47)
[2016-08-23] MEDS: BUDESONIDE-FORMOTEROL 160/4.5 MCG INHALER INH SCH (08:48)
[2016-08-23] MEDS ORDERED: PANTOPRAZOLE SOD 40 MG DELAYED RELEASE TAB PO SCH (09:00)
[2016-08-23] MEDS ORDERED: TIOTROPIUM BROMIDE 18 MCG INH INH SCH (09:00)
[2016-08-23] MEDS ORDERED: CLOPIDOGREL 75 MG TAB PO SCH (09:00)
[2016-08-23] MEDS ORDERED: LEVOTHYROXINE SODIUM 125 MCG TAB PO SCH (09:00)
[2016-08-23] MEDS ORDERED: DULoxetine HCl DR 60 MG CAP PO SCH (09:00)
[2016-08-23] MEDS ORDERED: LEVOFLOXACIN 500 MG TAB PO SCH (09:00)
[2016-08-23] MEDS ORDERED: LISINOPRIL 20 MG TAB PO SCH (09:00)
[2016-08-23 10:09] VITALS: PULSE 69
[2016-08-23 12:29] VITALS: BP 138/71; PULSE 76; RESP 20; TEMP 98; O2SAT 97
[2016-08-23] MEDS ORDERED: LEVA500T PO (13:12)
[2016-08-23] MEDS ORDERED: ASPI325T PO (13:14)
[2016-08-23] MEDS ORDERED: ALPRAZolam 0.25 MG TAB PO PRN (14:00)
[2016-08-23] MEDS ORDERED: LORazepam 0.5 MG TAB PO ONE (14:00)
[2016-08-23 14:25] LABS: BASOPHIL % 0.4 % (0.0-2.0); EOSINOPHIL # 0.1 TH/MM3 (0-0.4); EOSINOPHIL % 0.9 % (0.0-4.0); HEMATOCRIT 30.9 % (35.0-46.0); HEMO FLAGS DIFF FINAL; LYMPH % 16.5 % (9.0-44.0); LYMPHOCYTE # 1.1 TH/MM3 (1.0-4.8); MEAN CELL VOLUME 87.5 FL (80.0-100.0); MEAN CORPUSCULAR HEMOGLOBIN 28.9 PG (27.0-34.0); MEAN CORPUSCULAR HGB CONC 33.1 % (32.0-36.0); MONO % 6.5 % (0.0-8.0); NEUT % 75.7 % (16.0-70.0); PLATELET COUNT 201 TH/MM3 (150-450); RED BLOOD COUNT 3.53 MIL/MM3 (4.00-5.30); RED CELL DISTRIBUTION WIDTH 14.6 % (11.6-17.2); WHITE BLOOD COUNT 6.6 TH/MM3 (4.0-11.0)
[2016-08-23 14:53] LABS: ANION GAP 9 MEQ/L (5-15); BICARBONATE 25.4 MEQ/L (21.0-32.0); BLOOD UREA NITROGEN 9 MG/DL (7-18); CHLORIDE 109 MEQ/L (98-107); GLOMERULAR FILTRATION RATE 80 ML/MIN (>89); HDL CHOLESTEROL 43.7 MG/DL (40.0-60.0); LDL CHOLESTEROL 47 MG/DL (0-99); POTASSIUM 3.7 MEQ/L (3.5-5.1); SODIUM (NA) 143 MEQ/L (136-145)
--- NOTE | 2016-08-23 16:12 | HHI.PR ---
Subjective Remarks Patient seen in her room today she was with her family and She wants to go home, she was anxious earlier given her half milligram of Ativan by mouth 1 Objective Vitals Vital Signs Date Time Temp Pulse Resp B/P Pulse Ox O2 Delivery O2 Flow Rate FiO2 08/23/16 12:29 98.0 76 20 138/71 97 08/23/16 10:09 69 08/23/16 07:48 97 Nasal Cannula 3.00 08/23/16 07:35 97.9 72 19 169/83 94 08/23/16 05:28 98.1 73 19 127/64 95 08/23/16 00:56 98.1 72 19 132/62 98 08/22/16 23:00 84 08/22/16 20:00 80 20 155/63 96 08/22/16 19:38 98.3 80 20 134/80 96 08/22/16 19:20 98 Nasal Cannula 3.00 08/22/16 16:31 98.6 72 18 137/63 96 I/O 08/22/16 08/22/16 08/22/16 08/23/16 08/23/16 08/23/16 06:59 14:59 22:59 06:59 14:59 22:59 Intake Total 905 ml Balance 905 ml Intake Oral 240 ml IV Total 665 ml # Voids 1 1 Result Diagram: 08/23/16 1355 08/23/16 1355 Objective Remarks GENERAL: Well-nourished, well-developed patient, on 4 L NC with shortness of breath at rest. SKIN: Warm and dry. No rash. HEENT: Normocephalic. Atraumatic. Pupils equal and round. No scleral icterus. No injection or drainage. No nasal bleeding or discharge. Mucous membranes pink and moist. Supple. Trachea midline. CARDIOVASCULAR: Regular rate and rhythm. S1, S2 noted. No murmur appreciated. RESPIRATORY: Wheezing noted throughout. Breath sounds equal bilaterally. GASTROINTESTINAL: Abdomen soft, tender to palpation throughout. No rebound tenderness noted. Nondistended. Normoactive bowel sounds x4. MUSCULOSKELETAL: No obvious deformities. Extremities without clubbing, cyanosis , or edema. NEUROLOGICAL: Awake and alert. No obvious cranial nerve deficits. Motor grossly within normal limits. 5/5 muscle strength in bilateral upper and lower extremities. Normal speech. PSYCHIATRIC: Appropriate mood and affect; insight and judgment normal. A/P Assessment and Plan A/P: Mrs. Cordova is a 76-year-old female with a known medical history of end-stage chronic obstructive pulmonary disease, previous [place] with stent placement, hypertension, prior CVA and currently on [facility] hospice who presented to the emergency department by [facility] after being found unresponsive at home. Patient states that she has had ongoing abdominal pain for several days now with associated constipation and has been taking multiple laxatives over the past few days. Supposedly while patient was having a bowel movement she began to feel dizzy, lightheaded and remembers blacking out. Syncope with dehydration secondary to frequent laxative use with possible vasovagal response - Head CT resulted and images reviewed by me, no acute intracranial abnormality. Old basal ganglia and white matter ischemic changes. - CT abdomen/pelvis resulted and images reviewed by me, colonic diverticulosis but no evidence of acute diverticulitis; diffuse atherosclerotic disease. Focal relative mild dilatation of the distal abdominal aorta unchanged. Calcified splenic artery aneurysm unchanged. Subcentimeter right adrenal nodule unchanged for greater than 2 years, indicating an adenoma; Degenerative findings the lumbar spine and osteoarthritic findings in the hips; No acute findings in the abdomen or pelvis. - 1.5 L NS bolus given in ED. Start IVF NS at 42 ml/hr for total of 500ml. Monitor overload. Suspected UTI vs Asymptomatic bacteruria , UA resulted with large amount of leukocyte esterase. Urine culture pending. - WBC 12.0. Redraw this afternoon. - Lactic acid 1.4. - Cefepime 2 g IV x 1 given in ED. Vancomycin 1 g IV x 1 given in ED. - considering syncopal episode might be related to UTI, will start Levaquin 500 mg PO daily x 3 days. - Continue IVF. - Afebrile at this time. Monitor fevers. - Blood cultures ordered and pending - UA with large amount of leukocyte esterase, urine culture pending - Enteric path stool pending. - CBC and BMP in am. Hypokalemia, mild: Likely secondary to dehydration. Potassium 3.4 on 08/22. Replace with KCL 40 meq PO x 1 now. Recheck BMP later today and in am. Hypernatremia, mild: Likely secondary to dehydration. Sodium 148. Continue IVF. Recheck this afternoon. End-stage chronic obstructive pulmonary disease - Chest x-ray resulted and imaged reviewed by me, no acute cardiopulmonary disease demonstrated. - DuoNebs scheduled and PRN - Scheduled Symbicort and Spiriva inhaler. - Continue O2, titrate to keep SpO2 >92%. Hypertension, chronic - Upon presentation patient was hypotensive, 70/40. Hypotension has now resolved after 1.5 L IVF bolus. - Monitor closely. Continue IVF NS at 42 ml/hr x 500 ml. Watch for overload. - Hold lisinopril until bp picks up Coronary artery disease with previous DC with stent placement, on Plavix. - EKG done and reviewed by me, sinus rhythm with possible right ventricular conduction delay. No arrhythmias noted. - Trending troponin, 0.05--> 0.05; CPK 27--> 26. Awaiting last set. - Cardiac telemetry, monitor for arrhythmias. Mild anemia, chronic: Hemoglobin 10.9/Hematocrit 34.3. No obvious signs of bleeding. Continue to monitor. CBC in am. Hemoccult negative. Other chronic medical conditions include hypothyroidism , dyslipidemia, depression, and anxiety are all stable at this time, continue home medications as indicated. Will continue to monitor. GI Prophylaxis: Protonix 40 mg PO daily. DVT prophylaxis: Heparin 5,000 units sq Q8hr. SCD/sTEDs. Patient stable today BMP showed improve dehydration, I consulted with the patient and her family she was placed on continuous laxative scheduled every day , advised to improve her diet with more fibers, monitor her laxative intake and decrease it if start moving bowel, also advised her to avoid constipation at the same time in order to avoid straining and vasovagal reflexes Discharge patient to home Condition on discharge: Stable Healthy heart Diet as tolerated increase fiber activity as tolerated with fall precaution Rx written: See med rec Follow-up with primary care physician or hospice Silvio Shetty MD August 23, 2016 16:12
--- NOTE | 2016-08-23 16:42 | EKG ---
Date Performed: 08/23/2016 Time Performed: 08:14:27 PTAGE: 76 years EKG: Sinus rhythm POSSIBLE RIGHT VENTRICULAR CONDUCTION DELAY NONSPECIFIC ST & T-WAVE ABNORMALITY BORDERLINE ECG NO PREVIOUS TRACING DOCTOR: Juan Carlos Goddard Interpretating Date/Time 08/23/2016 16:40:41
--- NOTE | 2016-08-23 22:46 | EKG ---
Date Performed: 08/23/2016 Time Performed: 02:03:23 PTAGE: 76 years EKG: Sinus rhythm POSSIBLE RIGHT VENTRICULAR CONDUCTION DELAY MODERATE VOLTAGE CRITERIA FOR LVH, CONSIDER NORMAL VARIA NT MINIMAL ST DEPRESSION BORDERLINE ECG NO PREVIOUS TRACING DOCTOR: Jerry Lu Interpretating Date/Time 08/23/2016 22:46:01
--- NOTE | 2016-08-23 22:56 | EKG ---
Date Performed: 08/22/2016 Time Performed: 20:01:57 PTAGE: 76 years EKG: Sinus rhythm WITH OCCASIONAL ECTOPIC PREMATURE COMPLEXES POSSIBLE RIGHT VENTRICULAR CONDUCTION DELAY NONSPECIFIC ST & T-WAVE ABNORMALITY BORDERLINE ECG INTERPRETATION BASED ON A DEFAULT AGE OF 40 YEARS PREVIOUS TRACING : 08/22/2016 09.47 Compared to prior tracing no significant change DOCTOR: Jerry Lu Interpretating Date/Time 08/23/2016 22:54:23
== END 2016-08-23 15:27 | disposition home or self-care (01) ==
LOC: NEPC 05:24 → NEDA 10:35 → NEPFCDU 11:47
PROVIDERS: ADMIT Hospitalist; ATTEND Hospitalist
DX: R55 Syncope and collapse (principal); R41.82 Altered mental status, unspecified; Z86.73 Personal history of transient ischemic attack (TIA), and cerebral infarction without residual deficits; J44.9 Chronic obstructive pulmonary disease, unspecified; E03.9 Hypothyroidism, unspecified; I10 Essential (primary) hypertension; E78.5 Hyperlipidemia, unspecified; M19.90 Unspecified osteoarthritis, unspecified site; J45.909 Unspecified asthma, uncomplicated; F41.9 Anxiety disorder, unspecified; E78.00 Pure hypercholesterolemia, unspecified; K59.00 Constipation, unspecified; G43.909 Migraine, unspecified, not intractable, without status migrainosus; N19 Unspecified kidney failure; F17.210 Nicotine dependence, cigarettes, uncomplicated; Z79.899 Other long term (current) drug therapy; Z79.01 Long term (current) use of anticoagulants; E87.0 Hyperosmolality and hypernatremia; E86.0 Dehydration; N30.00 Acute cystitis without hematuria; I25.2 Old myocardial infarction; Z95.5 Presence of coronary angioplasty implant and graft; R10.9 Unspecified abdominal pain; K57.30 Diverticulosis of large intestine without perforation or abscess without bleeding; E87.6 Hypokalemia; D64.9 Anemia, unspecified; R94.31 Abnormal electrocardiogram [ECG] [EKG]
CPT/HCPCS: 70450; 71010; 74177; 80048; 80053; 80061; 81001; 82550; 82948; 83605; 83735; 84100; 84484; 85025; 85610; 85730; 86850; 86900; 86901; 87040; 87086; 87506; 93005; 94640; 94664; 96361; 96365; 96367; 96372; 96375; 99285; G0378; J0692; J1644; J2270; J2405; J3370; J7030; J7040; J7050; Q9967

== ENCOUNTER 2017-03-30 15:16 | Inpatient (IN) | payer MEDICARE, OTHER ==
[~2017-03-30] VITALS: Ht 162.6 cm; Wt 61.0 kg
[~2017-03-30 15:16] MED LIST changes: +AMOX500T2 PO; +ASPI-183 PO; +LEVA500T PO
[2017-03-30 15:39] VITALS: BP 112/58; PULSE 85; RESP 15; TEMP 97.5; O2SAT 89
[2017-03-30] MEDS ORDERED: SODIUM CHLORIDE 0.9% FLUSH 10 ML FLUSH IVF PRN (16:15)
[2017-03-30 16:28] LABS: AUTOMATED NEUTROPHIL # 5.9 TH/MM3 (1.8-7.7); BASOPHIL % 0.4 % (0.0-2.0); EOSINOPHIL # 0.1 TH/MM3 (0-0.4); HEMATOCRIT 32.5 % (35.0-46.0); HEMO FLAGS DIFF FINAL; LYMPH % 13.4 % (9.0-44.0); MEAN CELL VOLUME 83.8 FL (80.0-100.0); MEAN CORPUSCULAR HGB CONC 32.3 % (32.0-36.0); MONO % 8.4 % (0.0-8.0); NEUT % 76.8 % (16.0-70.0); PLATELET COUNT 220 TH/MM3 (150-450); RED BLOOD COUNT 3.88 MIL/MM3 (4.00-5.30); RED CELL DISTRIBUTION WIDTH 16.1 % (11.6-17.2); WHITE BLOOD COUNT 7.7 TH/MM3 (4.0-11.0)
--- NOTE | 2017-03-30 16:28 | PD ---
HPI Chief Complaint: Fall Time Seen by Provider: 16:05 Travel History International Travel<30 days: No Contact w/Intl Traveler<30days: No Traveled to known affect area: No History of Present Illness HPI 76-year-old female patient with history of multiple medical issues, presents to the ER today, was transferring from her car when she fell hitting her right hip , denies other issues or injuries. She was in significant pain when initially evaluated by EMS, was given multiple doses of morphine, and is fairly somnolent currently. Pain is currently fairly low, 0 out of 10. Modifying Factors: None Associated Signs & Symptoms: Fall, right hip injury Risk Factors: Elderly PFSH Past Medical History Arthritis: Yes Asthma: Yes Autoimmune Disease: No Blood Disorders: No Anxiety: Yes Depression: Yes Heart Rhythm Problems: No Cancer: No Cardiovascular Problems: Yes (PR, CHOL) High Cholesterol: Yes Chest Pain: No Congestive Heart Failure: No COPD: Yes Cerebrovascular Accident: Yes Diabetes: No Diminished Hearing: Yes (R EAR DEAF;L EAR DIMINISHED) Endocrine: Yes Gastrointestinal Disorders: Yes (CONSTIPATION) Glaucoma: Yes Genitourinary: Yes Headaches: Yes Hepatitis: No Hiatal Hernia: No Hypertension: No Immune Disorder: No Implanted Vascular Access Dvce: Yes Medical other: Yes (HX. STROKE - 2009; ARTHRITIS) Musculoskeletal: Yes Neurologic: Yes Psychiatric: No Reproductive: No Respiratory: Yes (COPD) Immunizations Current: Yes Migraines: Yes Renal Failure: Yes Sleep Apnea: No Thyroid Disease: Yes (HYPO) ?: Not Menopausal: Yes : 5 Para: 5 Past Surgical History Body Medical Devices: SCREWS IN LFET HIP Cardiac Surgery: No Ear Surgery: No Endocrine Surgery: No Eye Surgery: Yes (L EYE X 4) Genitourinary Surgery: No Gynecologic Surgery: Yes (HYSTERECTOMY; REMOVAL BENIGN TUMORS) Hysterectomy: Yes Neurologic Surgery: No Oral Surgery: Yes Pacemaker: No Tonsillectomy: Yes Other Surgery: Yes Social History Alcohol Use: No Tobacco Use: Yes (1/2 PPD) Substance Use: No (DENIED) Allergies-Medications (Allergen,Severity, Reaction): Coded Allergies: No Known Allergies (Unverified Adverse Reaction, Unknown, 03/30/17) Reported Meds & Prescriptions Reported Meds & Active Scripts Active Aspirin 325 Mg Tab 81 Mg PO DAILY Reported Amoxicillin-Clavulanate 500-125 mg Tab 500 Mg PO BID Protonix (Pantoprazole Sodium) 40 Mg Tab 40 Mg PO DAILY Vitamin B Complex (B-Complex Vitamins) 1 Tab 1 Tab PO DAILY Spiriva Handihaler (Tiotropium Inh) 18 Mcg Cap 18 Mcg INH DAILY 1 capsule = 18 mcg Metamucil (Psyllium) 520 Mg Cap 1 Cap PO BID Lisinopril 20 Mg Tab 20 Mg PO DAILY Levothyroxine (Levothyroxine Sodium) 125 Mcg Tab 125 Mcg PO DAILY Gabapentin 100 Mg Cap 100 Mg PO BID Lasix (Furosemide) 20 Mg Tab 30 Mg PO DIRECTED Cymbalta DR (Duloxetine HCl) 60 Mg Capdr 60 Mg PO DAILY B-12 (Cyanocobalamin) 2,000 Mcg Tab 2,000 Mcg PO DAILY Combigan Opth Drops (Brimonidine-Timolol Opth Drops) 0.2-0.5% Soln 1 Drop LEFT EYE Q12HR Plavix (Clopidogrel Bisulfate) 75 Mg Tab 75 Mg PO DAILY D3 (Cholecalciferol) 1,000 Unit Tab 1 Tab PO DAILY Atropine Opth Drops 1% Soln 1 Drop LEFT EYE QID Atorvastatin (Atorvastatin Calcium) 10 Mg Tab 10 Mg PO HS Alprazolam 0.25 Mg Tab 0.25 Mg PO HS PRN Albuterol Neb (Albuterol Sulfate) 2.5 Mg/0.5 Ml Neb 2.5 Mg NEB Q6HR NEB Note: The Albuterol Sulfate Inhalation Solution is concentrated and must be diluted. Read complete instructions carefully before using. Proventil Hfa 6.7 GM Inh (Albuterol Sulfate) 90 Mcg/Act Aer 2 Puff INH Q4-6H PRN Advair Diskus Inh (Fluticasone-Salmeterol Inh) 500-50 Mcg/Blist Aer 1 Puff INH BID Rinse mouth after use. Fioricet (Ltctcwtzxu-Nixrhesaonvbs-Fsbtehmw) 50-300-40 Mg Cap 1 Cap PO Q4H PRN Review of Systems Except as stated in HPI: all other systems reviewed are Neg Physical Exam Narrative GENERAL: Well-developed elderly white female patient currently in mild distress. Awake, lethargic, disoriented. SKIN: Focused skin assessment warm/dry. HEAD: Atraumatic. Normocephalic. EYES: Pupils equal and round. No scleral icterus. No injection or drainage. ENT: No nasal bleeding or discharge. Mucous membranes pink and moist. NECK: Trachea midline. No JVD. CARDIOVASCULAR: Regular rate and rhythm. No murmur appreciated. RESPIRATORY: No accessory muscle use. Clear to auscultation. Breath sounds equal bilaterally. GASTROINTESTINAL: Abdomen soft, non-tender, nondistended. Hepatic and splenic margins not palpable. Pelvis: Stable, tender to palpation of the right hip area with decreased range of motion due to pain. MUSCULOSKELETAL: No obvious deformities. No clubbing. No cyanosis. No edema. NEUROLOGICAL: Awake and lethargic. No obvious cranial nerve deficits. Motor grossly within normal limits. Normal speech. PSYCHIATRIC: Lethargic and disoriented. Data Data Last Documented VS Vital Signs Date Time Temp Pulse Resp B/P (MAP) Pulse Ox O2 Delivery O2 Flow Rate FiO2 03/30/17 17:53 96 18 117/68 (84) 97 Nasal Cannula 2.00 03/30/17 15:39 97.5 Orders Orders Electrocardiogram (03/30/17 16:05) Complete Blood Count With Diff (03/30/17 16:05) Comprehensive Metabolic Panel (03/30/17 16:05) Prothrombin Time / Inr (Pt) (03/30/17 16:05) Act Partial Throm Time (Ptt) (03/30/17 16:05) Chest, Single Ap (03/30/17 16:05) Hip, Uni(Ap&Lat) W Ap Pelvis (03/30/17 16:05) Iv Access Insert/Monitor (03/30/17 16:05) Oximetry (03/30/17 16:05) Ecg Monitoring (03/30/17 16:05) Sodium Chloride 0.9% Flush (Ns Flush) (03/30/17 16:15) Ct Brain W/O Iv Contrast(Rout) (03/30/17 16:05) Ct Cerv Spine W/O Contrast (03/30/17 17:05) Urinalysis - C+S If Indicated (03/30/17 17:35) Admit Order (Ed Use Only) (03/30/17 19:23) Choe's Traction (03/30/17 ) Labs Laboratory Tests Test 03/30/17 16:00 White Blood Count 7.7 TH/MM3 Red Blood Count 3.88 MIL/MM3 Hemoglobin 10.5 GM/DL Hematocrit 32.5 % Mean Corpuscular Volume 83.8 FL Mean Corpuscular Hemoglobin 27.0 PG Mean Corpuscular Hemoglobin Concent 32.3 % Red Cell Distribution Width 16.1 % Platelet Count 220 TH/MM3 Mean Platelet Volume 7.9 FL Neutrophils (%) (Auto) 76.8 % Lymphocytes (%) (Auto) 13.4 % Monocytes (%) (Auto) 8.4 % Eosinophils (%) (Auto) 1.0 % Basophils (%) (Auto) 0.4 % Neutrophils # (Auto) 5.9 TH/MM3 Lymphocytes # (Auto) 1.0 TH/MM3 Monocytes # (Auto) 0.6 TH/MM3 Eosinophils # (Auto) 0.1 TH/MM3 Basophils # (Auto) 0.0 TH/MM3 CBC Comment DIFF FINAL Differential Comment Prothrombin Time 10.1 SEC Prothromb Time International Ratio 1.0 RATIO Activated Partial Thromboplast Time 22.2 SEC Blood Urea Nitrogen 17 MG/DL Creatinine 0.61 MG/DL Random Glucose 82 MG/DL Total Protein 5.9 GM/DL Albumin 2.8 GM/DL Calcium Level 8.2 MG/DL Alkaline Phosphatase 81 U/L Aspartate Amino Transf (AST/SGOT) 30 U/L Alanine Aminotransferase (ALT/SGPT) 17 U/L Total Bilirubin 0.3 MG/DL Sodium Level 141 MEQ/L Potassium Level 4.0 MEQ/L Chloride Level 105 MEQ/L Carbon Dioxide Level 29.5 MEQ/L Anion Gap 7 MEQ/L Estimat Glomerular Filtration Rate 95 ML/MIN MDM Medical Decision Making Medical Screen Exam Complete: Yes Emergency Medical Condition: Yes Medical Record Reviewed: Yes Interpretation(s) EKG shows normal sinus rhythm with occasional APCs at a rate of 86 bpm with no signs of acute ST-T changes. Laboratory Tests Test 03/30/17 16:00 Red Blood Count 3.88 MIL/MM3 (4.00-5.30) Hemoglobin 10.5 GM/DL (11.6-15.3) Hematocrit 32.5 % (35.0-46.0) Neutrophils (%) (Auto) 76.8 % (16.0-70.0) Monocytes (%) (Auto) 8.4 % (0.0-8.0) Activated Partial Thromboplast Time 22.2 SEC (24.3-30.1) Total Protein 5.9 GM/DL (6.4-8.2) Albumin 2.8 GM/DL (3.4-5.0) Calcium Level 8.2 MG/DL (8.5-10.1) Last 24 hours Impressions C[address]ical Spine CT 03/30/17 1705 Signed Impressions: Service Date/Time: Thursday, March 30, 2017 18:39 - CONCLUSION: 1. No acute fracture or prevertebral soft tissue swelling. Mild spinal stenosis at C4-5 and C5-6. 2. Moderate to severe bilateral foraminal narrowing at C4-5 and C5-6 and [id number] left neural foraminal narrowing at C2-3, C3-4 and C6-7. 3. Small fluid level within the left sphenoid sinus. 4. Right apical fibrotic scarring. Gaurang Reynoso MD Hip and Pelvis X-Ray 03/30/17 1605 Signed Impressions: Service Date/Time: Thursday, March 30, 2017 16:33 - CONCLUSION: 1. Nondisplaced subcapital femoral neck fracture of the right hip. 2. Intact pelvis 3. Status post left hip pinning Carter Weeks MD Head CT 03/30/17 1605 Signed Impressions: Service Date/Time: Thursday, March 30, 2017 18:40 - CONCLUSION: 1. Scattered old lacunar infarcts within the bilateral basal ganglia. 2. Mild periventricular and subcortical white matter small vessel ischemic changes bilaterally. 3. No acute infarct, acute hemorrhage, mass effect or extra- axial fluid collections. Gaurang Reynoso MD Chest X-Ray 03/30/17 1605 Signed Impressions: Service Date/Time: Thursday, March 30, 2017 16:33 - CONCLUSION: 1. Hypoaerated lungs with some minimal airspace disease in the left base. 2. No evidence of consolidating airspace disease. 3. Marked cardiomegaly. Carter Weeks MD Differential Diagnosis Fall, right hip injury: Rule out other injuries, intracranial injuries versus fractures versus dislocation Narrative Course X-ray shows a right supple No fracture, and the case was discussed with orthopedics doctor Fatimah who states that the patient should be medically admitted, will need a 5 pound choe traction. An by mouth after midnight. CAT scan did not show any signs of intracranial or neck injuries. At this point, case is discussed with Dr. Haddad for admission medically. Diagnosis Primary Impression: Closed right hip fracture Admitting Information Admitting Physician Requests: Admit Lionel Laboy MD Mar 30, 2017 16:28
[2017-03-30 16:29] VITALS: O2SAT 96
[2017-03-30 16:40] LABS: APTT (PATIENT) 22.2 SEC (24.3-30.1); PROTHROMBIN TIME - PATIENT 10.1 SEC (9.8-11.6)
[2017-03-30 16:54] LABS: ALKALINE PHOSPHATASE 81 U/L (45-117); TOTAL BILIRUBIN ADULT 0.3 MG/DL (0.2-1.0)
[2017-03-30 16:55] LABS: ALT (GPT) 17 U/L (10-53); ANION GAP 7 MEQ/L (5-15); AST (GOT) 30 U/L (15-37); BICARBONATE 29.5 MEQ/L (21.0-32.0); BLOOD UREA NITROGEN 17 MG/DL (7-18); CHLORIDE 105 MEQ/L (98-107); GLOMERULAR FILTRATION RATE 95 ML/MIN (>89); SODIUM (NA) 141 MEQ/L (136-145)
--- NOTE | 2017-03-30 17:13 | RADRPT ---
EXAM DATE/TIME: 03/30/2017 16:33 [facility] COMPARISON: CHEST SINGLE AP, August 22, 2016, 5:42. INDICATIONS : Fall. Right hip pain. MEDICAL HISTORY : Stroke. Renal failure, acute. SURGICAL HISTORY : Left hip perc pinning. ENCOUNTER: Initial ACUITY: 1 day PAIN SCORE: Non-responsive. LOCATION: Right hip FINDINGS: The lungs are hypoaerated. No airspace disease is seen in the left. Minimal pleural thickening is identified left base. Heart is mildly enlarged. CONCLUSION: 1. Hypoaerated lungs with some minimal airspace disease in the left base. 2. No evidence of consolidating airspace disease. 3. Marked cardiomegaly. Carter Weeks MD on March 30, 2017 at 17:10 Board Certified Radiologist. This report was verified electronically.
--- NOTE | 2017-03-30 17:36 | RADRPT ---
EXAM DATE/TIME: 03/30/2017 16:33 [facility] COMPARISON: No previous studies available for comparison. INDICATIONS : Fall. Right hip pain. MEDICAL HISTORY : Stroke. Renal failure, acute. SURGICAL HISTORY : Left hip perc pinning. ENCOUNTER: Initial ACUITY: 1 day PAIN SCORE: Non-responsive. LOCATION: Right hip FINDINGS: Focal cortical offset is seen in the subcapital region of the femoral neck characteristic of a nondis placed fracture. Femoral head remains well-seated within the acetabulum. [id number] arthropathy is noted. Left hip is undergone previous pinning. Bony pelvis is intact. CONCLUSION: 1. Nondisplaced subcapital femoral neck fracture of the right hip. 2. Intact pelvis 3. Status post left hip pinning Carter Weeks MD on March 30, 2017 at 17:32 Board Certified Radiologist. This report was verified electronically.
[2017-03-30 17:53] VITALS: BP 117/68; PULSE 96; RESP 18; O2SAT 97
--- NOTE | 2017-03-30 19:08 | RADRPT ---
EXAM DATE/TIME: 03/30/2017 18:40 [facility] COMPARISON: CT BRAIN W/O CONTRAST, August 22, 2016, 6:09. INDICATIONS : Trauma. Fall. RADIATION DOSE: 56.35 CTDIvol (mGy) MEDICAL HISTORY : Hypertension. Chronic obstructive pulmonary disease. Emphysema. SURGICAL HISTORY : Hysterectomy. ENCOUNTER: Initial ACUITY: 2 days PAIN SCALE: 0/10 LOCATION: cranial TECHNIQUE: Multiple contiguous axial images were obtained of the head. Using automated exposure control and adj ustment of the mA and/or kV according to patient size, radiation dose was kept as low as reasonably a chievable to obtain optimal diagnostic quality images. DICOM format image data is available electro nically for review and comparison. FINDINGS: CEREBRUM: The ventricles are normal for age. No evidence of midline shift, mass lesion, hemorrhage or acute in farction. No extra-axial fluid collections are seen. Scattered old lacunar infarcts are noted within the bilateral basal ganglia. Mild periventricular and subcortical white matter small vessel ischemic changes are noted bilaterally. POSTERIOR FOSSA: The cerebellum and brainstem are intact. The 4th ventricle is midline. The cerebellopontine angle i s unremarkable. EXTRACRANIAL: The visualized portion of the orbits is intact. SKULL: The calvaria is intact. No evidence of skull fracture. CONCLUSION: 1. Scattered old lacunar infarcts within the bilateral basal ganglia. 2. Mild periventricular and subcortical white matter small vessel ischemic changes bilaterally. 3. No acute infarct, acute hemorrhage, mass effect or extra-axial fluid collections. Gaurang Reynoso MD on March 30, 2017 at 19:05 Board Certified Radiologist. This report was verified electronically.
--- NOTE | 2017-03-30 19:14 | RADRPT ---
EXAM DATE/TIME: 03/30/2017 18:39 [facility] COMPARISON: No previous studies available for comparison. INDICATIONS : Trauma. Fall. RADIATION DOSE: 31.52 CTDIvol (mGy) MEDICAL HISTORY : Hypertension. Chronic obstructive pulmonary disease. Emphysema. SURGICAL HISTORY : Hysterectomy. ENCOUNTER: Initial ACUITY: 1 day PAIN SCALE: 0/10 LOCATION: neck TECHNIQUE: Volumetric scanning of the cervical spine was performed. Multiplanar reconstructions in the sagittal, coronal and oblique axial planes were performed. Using automated exposure control and adjustment o f the mA and/or kV according to patient size, radiation dose was kept as low as reasonably achievable to obtain optimal diagnostic quality images. DICOM format image data is available electronically f or review and comparison. FINDINGS: There is no acute fracture or prevertebral soft tissue swelling. Cervical spondylosis is noted at all levels and is most significant at C4-5, C5-6 and C6-7. Mild spinal stenosis is noted at C4-5 and C5- 6. Moderate to severe bilateral foraminal narrowing is noted at C4-5 and C5-6 and moderate to severe left neuroforaminal narrowing is noted at C2-3, C3-4 and C6-7. The bony relationship and alignment be tween C1 and C2 is well maintained. There is a small fluid level within the left sphenoid sinus. Righ t apical scarring is noted. CONCLUSION: 1. No acute fracture or prevertebral soft tissue swelling. Mild spinal stenosis at C4-5 and C5-6. 2. Moderate to severe bilateral foraminal narrowing at C4-5 and C5-6 and rnglzjwq-[id number] left neur al foraminal narrowing at C2-3, C3-4 and C6-7. 3. Small fluid level within the left sphenoid sinus. 4. Right apical fibrotic scarring. Gaurang Reynoso MD on March 30, 2017 at 19:07 Board Certified Radiologist. This report was verified electronically.
[2017-03-30] MEDS ORDERED: NALOXONE HCL 0.4 MG/ML AMP IV PUSH PRN (19:45)
[2017-03-30] MEDS ORDERED: SODIUM CHLORIDE 0.9% FLUSH 10 ML FLUSH IV FLUSH PRN (19:45)
[2017-03-30] MEDS ORDERED: MELA2.5C2 CHEW (19:48)
[2017-03-30] MEDS ORDERED: MIRA3350 PO (19:48)
[2017-03-30] MEDS ORDERED: LORA-392 PO (19:48)
[2017-03-30] MEDS ORDERED: MEGASUS2 PO (19:48)
[2017-03-30] MEDS ORDERED: BUSP10TA PO (19:48)
[2017-03-30] MEDS ORDERED: SENN8.6T81 PO (19:48)
[2017-03-30] MEDS ORDERED: LEVA3NEB12 NEB (19:48)
[2017-03-30] MEDS ORDERED: FURO1TAB62 PO (19:48)
[2017-03-30] MEDS ORDERED: GABA100C4 PO (19:48)
[2017-03-30] MEDS ORDERED: FLUT1INH INH (19:48)
[2017-03-30] MEDS ORDERED: TRAZ100T10 PO (19:48)
--- NOTE | 2017-03-30 19:49 | HHI.HP ---
[facility] Primary Care Physician Agustín Fitzpatrick MD Admission Diagnosis fall/right hip fracture Diagnoses: Chief Complaint: fall Travel History International Travel<30 Days: No Contact w/Intl Traveler <30 Da: No Traveled to Known Affected Are: No History of Present Illness 76-year-old female with a known medical history of end-stage chronic obstructive pulmonary disease on [facility], previous AL with stent placement, hypertension, prior CVA and currently on [facility] who presented to the emergency department after mechanical fall for further evaluation of right hip pain. Patient was in the truck and apparently she tried to get out of the truck and fell. She denies any cp, sob, lightheadedness. She is on chronic O2 use. per son she is still smoking. She denies any associated nausea, vomiting or diarrhea. Also denies any associated chest pain, palpitations, recent fevers, chills or cough. Presently, patient is seen and examined by myself and Dr. Hernandez in emergency room with daughter at bedside. She is awake and alert however somnolent as she received pain meds. She is currently not in pain. Patient is found with closed right neck femoral fractures, ortho consulted recommends NPO after midnight . However patient with severe copd an cardiac history will consult pulm and cardiology for clearance for surgery. Patient was DNR however family /patient reversed DNR and if surgery indicated they agree for surgery. Patient is fairly mobile and walks with a walker at home. Review of Systems ROS Limitations: Clinical Condition, Poor Historian Except as stated in HPI: all other systems reviewed are Neg Past Family Social History Past Medical History Arthritis History of AL Dyslipidemia Hypertension History of CVA End-stage COPD Hypothyroidism Glaucoma Right ear deafness Past Surgical History Hysterectomy Tonsillectomy Left eye surgery Left hip orthopedic surgery Reported Medications Reported Meds & Active Scripts Active Aspirin 325 Mg Tab 81 Mg PO DAILY Reported Buspirone (Buspirone HCl) 10 Mg Tab 10 Mg PO BID Breo Ellipta Inh (Fluticasone/Vilanterol) 100-25 Mcg/Act Inh 1 Puff INH DAILY Use daily at the same time. Lasix (Furosemide) 20 Mg Tab 20 Mg PO DAILY Gabapentin 100 Mg Cap 100 Mg PO TID Ativan (Lorazepam) 0.5 Mg Tab 0.5 Mg PO HS PRN Megace ES Liq (Megestrol ES Liq) 625 Mg/5 Ml Susp 400 Mg PO DAILY Melatonin Gummies (Melatonin) 2.5 Mg Chw 5 Mg CHEW HS Miralax Powder (Polyethylene Glycol 3350 Powder) 17 Gm Powd 17 Gm PO DAILY Mix and dissolve one measuring cap-ful (17 grams) in water or juice. Sennosides 8.6 Mg Tab 8.6 Mg PO HS Trazodone (Trazodone HCl) 100 Mg Tablet 100 Mg PO HS Xopenex Neb (Levalbuterol HCl) 1.25 Mg/3 Ml Neb 1.25 Mg NEB TID Protonix (Pantoprazole Sodium) 40 Mg Tab 40 Mg PO DAILY Spiriva Handihaler (Tiotropium Inh) 18 Mcg Cap 18 Mcg INH DAILY 1 capsule = 18 mcg Metamucil (Psyllium) 520 Mg Cap 1 Cap PO BID Lisinopril 20 Mg Tab 20 Mg PO DAILY Levothyroxine (Levothyroxine Sodium) 125 Mcg Tab 125 Mcg PO DAILY Cymbalta DR (Duloxetine HCl) 60 Mg Capdr 60 Mg PO DAILY Combigan Opth Drops (Brimonidine-Timolol Opth Drops) 0.2-0.5% Soln 1 Drop LEFT EYE Q12HR Plavix (Clopidogrel Bisulfate) 75 Mg Tab 75 Mg PO DAILY Atorvastatin (Atorvastatin Calcium) 10 Mg Tab 10 Mg PO HS Albuterol Neb (Albuterol Sulfate) 2.5 Mg/0.5 Ml Neb 2.5 Mg NEB Q6HR NEB Note: The Albuterol Sulfate Inhalation Solution is concentrated and must be diluted. Read complete instructions carefully before using. Proventil Hfa 6.7 GM Inh (Albuterol Sulfate) 90 Mcg/Act Aer 2 Puff INH Q4-6H PRN Allergies: Coded Allergies: No Known Allergies (Unverified Allergy, Unknown, 03/30/17) Family History Denies significant family medical history. Social History Patient lives at home with , currently on [facility] hospice program for end- stage COPD. Patient states that she still continues to smoke cigarettes, 1/2 ppd. Denies any alcohol or illicit drug use. Physical Exam Vital Signs Vital Signs Date Time Temp Pulse Resp B/P (MAP) Pulse Ox O2 Delivery O2 Flow Rate FiO2 03/30/17 17:53 96 18 117/68 (84) 97 Nasal Cannula 2.00 03/30/17 16:29 96 Nasal Cannula 2.00 03/30/17 15:39 97.5 85 15 112/58 (76) 89 Physical Exam GENERAL: This is a frail 76-year-old female, well-nourished, well-developed patient, in no apparent distress. SKIN: No rashes, ecchymoses or lesions. Cool and dry. HEAD: Atraumatic. Normocephalic. No temporal or scalp tenderness. EYES: Pupils equal round and reactive. Extraocular motions intact. No scleral icterus. No injection or drainage. ENT: Nose without bleeding, purulent drainage or septal hematoma. Throat without erythema, tonsillar hypertrophy or exudate. Uvula midline. Airway patent. NECK: Trachea midline. No JVD or lymphadenopathy. Supple, nontender, no meningeal signs. CARDIOVASCULAR: Regular rate and rhythm without murmurs, gallops, or rubs. RESPIRATORY: Clear to auscultation. Breath sounds equal bilaterally. No wheezes , rales, or rhonchi. GASTROINTESTINAL: Abdomen soft, non-tender, nondistended. No hepato-splenomegaly , or palpable masses. No guarding. MUSCULOSKELETAL: Painful right hip on palpation. Decreased range of motion of the hip due to pain. Neurovascular intact. Extremities without clubbing, cyanosis, or edema. No joint tenderness, effusion, or edema noted. No calf tenderness. Negative Homans sign bilaterally. NEUROLOGICAL: Awake and alert. Cranial nerves grossly intact. Motor and sensory grossly within normal limits. Normal speech. Laboratory Laboratory Tests Test 03/30/17 16:00 White Blood Count 7.7 Red Blood Count 3.88 Hemoglobin 10.5 Hematocrit 32.5 Mean Corpuscular Volume 83.8 Mean Corpuscular Hemoglobin 27.0 Mean Corpuscular Hemoglobin Concent 32.3 Red Cell Distribution Width 16.1 Platelet Count 220 Mean Platelet Volume 7.9 Neutrophils (%) (Auto) 76.8 Lymphocytes (%) (Auto) 13.4 Monocytes (%) (Auto) 8.4 Eosinophils (%) (Auto) 1.0 Basophils (%) (Auto) 0.4 Neutrophils # (Auto) 5.9 Lymphocytes # (Auto) 1.0 Monocytes # (Auto) 0.6 Eosinophils # (Auto) 0.1 Basophils # (Auto) 0.0 CBC Comment DIFF FINAL Differential Comment Prothrombin Time 10.1 Prothromb Time International Ratio 1.0 Activated Partial Thromboplast Time 22.2 Blood Urea Nitrogen 17 Creatinine 0.61 Random Glucose 82 Total Protein 5.9 Albumin 2.8 Calcium Level 8.2 Alkaline Phosphatase 81 Aspartate Amino Transf (AST/SGOT) 30 Alanine Aminotransferase (ALT/SGPT) 17 Total Bilirubin 0.3 Sodium Level 141 Potassium Level 4.0 Chloride Level 105 Carbon Dioxide Level 29.5 Anion Gap 7 Estimat Glomerular Filtration Rate 95 Result Diagram: 03/30/17 1600 03/30/17 1600 Imaging Last Impressions Cervical Spine CT 03/30/17 1705 Signed Impressions: Service Date/Time: Thursday, March 30, 2017 18:39 - CONCLUSION: 1. No acute fracture or prevertebral soft tissue swelling. Mild spinal stenosis at C4-5 and C5-6. 2. Moderate to severe bilateral foraminal narrowing at C4-5 and C5-6 and [id number] left neural foraminal narrowing at C2-3, C3-4 and C6-7. 3. Small fluid level within the left sphenoid sinus. 4. Right apical fibrotic scarring. Gaurang Reynoso MD Hip and Pelvis X-Ray 03/30/17 160 Signed Impressions: Service Date/Time: Thursday, March 30, 2017 16:33 - CONCLUSION: 1. Nondisplaced subcapital femoral neck fracture of the right hip. 2. Intact pelvis 3. Status post left hip pinning Carter Weeks MD Head CT 03/30/17 160 Signed Impressions: Service Date/Time: Thursday, March 30, 2017 18:40 - CONCLUSION: 1. Scattered old lacunar infarcts within the bilateral basal ganglia. 2. Mild periventricular and subcortical white matter small vessel ischemic changes bilaterally. 3. No acute infarct, acute hemorrhage, mass effect or extra- axial fluid collections. Gaurang Reynoso MD Chest X-Ray 03/30/17 160 Signed Impressions: Service Date/Time: Thursday, March 30, 2017 16:33 - CONCLUSION: 1. Hypoaerated lungs with some minimal airspace disease in the left base. 2. No evidence of consolidating airspace disease. 3. Marked cardiomegaly. Carter Weeks MD Caprini VTE Risk Assessment Caprini VTE Risk Assessment: Mod/High Risk (score >= 2) Caprini Risk Assessment Model Point Value = 1 Point Value = 2 Point Value = 3 Point Value = 5 Age 41-60 Minor surgery BMI > 25 kg/m2 Swollen legs Varicose veins or History of unexplained or recurrent spontaneous Oral contraceptives or hormone replacement Sepsis (< 1 month) Serious lung disease, including pneumonia (< 1 month) Abnormal pulmonary function Acute myocardial infarction Congestive heart failure (< 1 month) History of inflammatory bowel disease Medical patient at bed rest Age 61-74 Arthroscopic surgery Major open surgery (> 45 min) Laparoscopic surgery (> 45 min) Malignancy Confined to bed (> 72 hours) Immobilizing plaster cast Central venous access Age >= 75 History of VTE Family history of VTE Factor V Leiden Prothrombin [id number] Lupus anticoagulant Anticardiolipin antibodies Elevated serum homocysteine Heparin-induced thrombocytopenia Other congenital or acquired thrombophilia Stroke (< 1 month) Elective arthroplasty Hip, pelvis, or leg fracture Acute spinal cord injury (< 1 month) Prophylaxis Regimen Total Risk Factor Score Risk Level Prophylaxis Regimen 0-1 Low Early ambulation 2 Moderate Order ONE of the following: *Sequential Compression Device (SCD) *Heparin 5000 units SQ BID 3-4 Higher Order ONE of the following medications: *Heparin 5000 units SQ TID *Enoxaparin/Lovenox 40 mg SQ daily (WT < 150 kg, CrCl > 30 mL/min) *Enoxaparin/Lovenox 30 mg SQ daily (WT < 150 kg, CrCl > 10-29 mL/min) *Enoxaparin/Lovenox 30 mg SQ BID (WT < 150 kg, CrCl > 30 mL/min) AND/OR *Sequential Compression Device (SCD) 5 or more Highest Order ONE of the following medications: *Heparin 5000 units SQ TID (Preferred with Epidurals) *Enoxaparin/Lovenox 40 mg SQ daily (WT < 150 kg, CrCl > 30 mL/min) *Enoxaparin/Lovenox 30 mg SQ daily (WT < 150 kg, CrCl > 10-29 mL/min) *Enoxaparin/Lovenox 30 mg SQ BID (WT < 150 kg, CrCl > 30 mL/min) AND *Sequential Compression Device (SCD) Assessment and Plan Problem List: (1) Closed right hip fracture ICD Code: S72.001A - Fracture of unspecified part of neck of right femur, initial encounter for closed fracture Status: Acute (2) COPD (chronic obstructive pulmonary disease) ICD Code: J44.9 - COPD (chronic obstructive pulmonary disease) Status: Acute (3) Hypertension ICD Code: I10 - Hypertension Status: Acute (4) Hypothyroidism ICD Code: E03.9 - Hypothyroidism Status: Acute (5) Hyperlipidemia ICD Code: E78.5 - Hyperlipidemia Status: Acute (6) Anxiety ICD Code: F41.9 - Anxiety Status: Acute (7) CAD (coronary artery disease) ICD Code: I25.10 - CAD (coronary artery disease) Status: Acute (8) CVA (cerebral infarction) ICD Code: I63.9 - CVA (cerebral infarction) Status: Acute Assessment and Plan Mrs. Cordova is a 76-year-old female with a known medical history of end-stage chronic obstructive pulmonary disease, previous AL with stent placement, hypertension, prior CVA and currently on [facility] who presented to the emergency department after mechanical fall Status post Mechanical fall with resultant right femoral neck fracture Keep nothing by mouth after midnight Consults orthopedic doctor Patient is however with comorbidities with end-stage COPD on chronic oxygen use also extensive cardiac history currently on feet does hospice at home, needs pulmonary and cardiac clearance for surgery. End-stage chronic obstructive pulmonary disease. Chronic respiratory failure on chronic O2 use at home, also patient on [facility]. Doesn't appears exacerbation at this time. Monitor closely Chest x-ray resulted and imaged reviewed by me, no acute cardiopulmonary disease demonstrated. DuoNebs scheduled and PRN Scheduled Symbicort and Spiriva inhaler. Continue O2, titrate to keep SpO2 >92%. Consult pulm for evaluation and clearance for surgery Hypertension, chronic Monitor blood pressure, currently stable. Resume home medications. Coronary artery disease with previous AL with stent placement, on Plavix. EKG reviewed by me, no change from previous Resume home medications, hold aspirin and Plavix as this time. Cardiology consulted for clearance for surgery Mild anemia, chronic: H&H stable at baseline. No obvious signs of bleeding. Continue to monitor. CBC in am. Other chronic medical conditions include hypothyroidism , dyslipidemia, depression, and anxiety are all stable at this time, continue home medications as indicated. GI Prophylaxis: Protonix 40 mg PO daily. DVT prophylaxis: SCD/sTEDs. Chemical prophylaxis per surgeon Discussed Condition With Patient, nurse, ED physician, family at bedside-her son Physician Certification 2 Midnight Certification Type: Admission for Inpatient Services Order for Inpatient Services The services are ordered in accordance with Medicare regulations or non- Medicare payer requirements, as applicable. In the case of services not specified as inpatient-only, they are appropriately provided as inpatient services in accordance with the 2-midnight benchmark. Estimated LOS (days): 3 days is the estimated time the patient will need to remain in the hospital, assuming treatment plan goals are met and no additional complications. Post-Hospital Plan: Not yet determined Solange Parks MD Mar 30, 2017 19:49
[2017-03-30] MEDS ORDERED: ALBUTEROL SULFATE 90 MCG/ACT HFA 8 GM INHALER INH PRN (20:45)
[2017-03-30] MEDS ORDERED: LORazepam 0.5 MG TAB PO PRN (20:45)
[2017-03-30 20:51] VITALS: BP 186/106; PULSE 94; RESP 18; TEMP 98.1; O2SAT 95
[2017-03-30] MEDS: SODIUM CHLORIDE 0.9% FLUSH 10 ML FLUSH IV FLUSH SCH (21:00)
[2017-03-30] MEDS: busPIRone HCL 10 MG TAB PO SCH (21:00)
[2017-03-30] MEDS: MELATONIN 5 MG TAB PO SCH (21:00)
[2017-03-30] MEDS: ATORVASTATIN 10 MG TAB PO SCH (21:00)
[2017-03-30] MEDS ORDERED: NON-FORMULARY DRUG (Brimonidine-Timolol Opth Drops (Combigan Opth Drops) 1 DROP) LEFT EYE SCH (21:00)
[2017-03-30] MEDS: PSYLLIUM FIBER SF/GF 6 GM POWD PKT PO SCH (21:00)
[2017-03-30] MEDS: SENNOSIDES 8.6 MG TAB PO SCH (21:00)
[2017-03-30] MEDS: traZODone HCL 100 MG TAB PO SCH (21:00)
[2017-03-30 21:25] VITALS: BP 118/71; PULSE 85; RESP 18; TEMP 96.8; O2SAT 92
[2017-03-30 21:59] LABS: BLOOD, URINE NEG (NEG); COMMENT (UR) CULT NOT INDICATED; CULTURE IF INDICATED CULT NOT INDICATED; GLUCOSE,URINE NEG (NEG); HYALINE CAST, URINE 1 /lpf (RARE); KETONE, URINE NEG (NEG); MUCUS URINE FEW /lpf (OCC); NITRITE,URINE NEG (NEG); SQUAMOUS EPITHELIAL CELL URINE <1 /hpf (0-5); URINE COLOR YELLOW (YELLW/STRAW)
[2017-03-31] VITALS (10 sets, daily range): BP systolic 93–141; BP diastolic 55–77; PULSE 81–107; RESP 17–20; TEMP 96.3–99.1; O2SAT 90–95
[2017-03-31] MEDS ORDERED: LACTATED RINGER'S 1000 ML IV PRN (00:45)
[2017-03-31] MEDS ORDERED: INSULIN HUMAN REGULAR 1,000 UNITS/10 ML VIAL SQ PRN (00:45)
[2017-03-31] MEDS ORDERED: METOPROLOL TARTRATE 25 MG TAB PO PRN (00:45)
[2017-03-31] MEDS ORDERED: CHLORHEXIDINE GLUCONATE 2 % 1 PACK (2 CLOTHS) TOPICAL PRN (00:45)
[2017-03-31] MEDS ORDERED: POVIDONE IODINE 5% (ANTISEPSIS KIT) 4 APPLICATIONS EACH NARE PRN (00:45)
[2017-03-31] MEDS ORDERED: SODIUM CHLORID 0.9% 500 ML IV PRN (00:45)
[2017-03-31] MEDS: LEVOTHYROXINE SODIUM 125 MCG TAB PO SCH (06:00)
[2017-03-31] MEDS: ONDANSETRON HCL 4 MG/2 ML VIAL IVP PRN (06:54)
[2017-03-31] MEDS: MORPHINE SULFATE 2 MG/ML INJ IV PUSH PRN ×2 (07:22→10:12)
[2017-03-31] MEDS ORDERED: RESP: ALBUTEROL 2.5 MG/3 ML NEB (SCH) NEB (08:00)
--- NOTE | 2017-03-31 08:22 | PD.CARD.PN ---
Objective Medications Current Medications Medications (Trade) Dose Ordered Sig/Miki Route Start Time Stop Time Status Last Admin (NS Flush) 2 ml UNSCH PRN IV FLUSH 03/30/17 19:45 (NS Flush) 2 ml BID IV FLUSH 03/30/17 21:00 (Zofran Inj) 4 mg Q6H PRN IVP 03/30/17 19:45 03/31/17 06:54 (Narcan Inj) 0.4 mg UNSCH PRN IV PUSH 03/30/17 19:45 (Morphine Inj) 2 mg Q3H PRN IV PUSH 03/30/17 19:45 03/31/17 07:22 (Proair Hfa Inh) 2 puff Q6HR PRN INH 03/30/17 20:45 (Aspirin) 81 mg DAILY PO 03/31/17 09:00 (Lipitor) 10 mg HS PO 03/30/17 21:00 (Buspar) 10 mg BID PO 03/30/17 21:00 (Plavix) 75 mg DAILY PO 03/31/17 09:00 (Cymbalta Dr) 60 mg DAILY PO 03/31/17 09:00 (Breo Ellipta 100-25 Inh) 1 puff DAILY INH 03/31/17 09:00 (Lasix) 20 mg DAILY PO 03/31/17 09:00 (Neurontin) 100 mg TID PO 03/31/17 09:00 (Synthroid) 125 mcg DAILY@0600 PO 03/31/17 06:00 (Prinivil) 20 mg DAILY PO 03/31/17 09:00 (Ativan) 0.5 mg HS PRN PO 03/30/17 20:45 (Protonix) 40 mg DAILY PO 03/31/17 09:00 (Miralax) 17 gm DAILY PO 03/31/17 09:00 (Senokot) 8.6 mg HS PO 03/30/17 21:00 (Spiriva Inh) 18 mcg DAILY INH 03/31/17 09:00 (Albuterol Neb) 1.25 mg TID NEB NEB 03/31/17 08:00 (Megace Liq) 400 mg DAILY PO 03/31/17 09:00 (Melatonin) 5 mg HS PO 03/30/17 21:00 (Metamucil Smooth Texture Sf/ Gf Pkt) 1 pkt BID PO 03/30/17 21:00 (Desyrel) 100 mg HS PO 03/30/17 21:00 (Duoneb Neb) 1 ampule Q2HR NEB PRN NEB 03/30/17 20:45 (Alphagan 0.2% Opth Soln) 1 drop Q12HR LEFT EYE 03/31/17 09:00 (Timoptic 0.5% Opth Soln) 1 drop Q12HR LEFT EYE 03/31/17 09:00 Lactated Ringer's 1,000 ml @ 30 mls/hr Q24H PRN IV 03/31/17 00:45 04/03/17 00:44 Sodium Chloride 500 ml @ 30 mls/hr [id number] PRN IV 03/31/17 00:45 04/03/17 00:44 (Lopressor) 25 mg [employer]ICIAN PRN PO 03/31/17 00:45 04/03/17 00:44 (Betadine 5% Antisepsis Kit) 1 applic [employer]CHNICIAN PRN EACH NARE 03/31/17 00:45 04/03/17 00:44 (Chlorhexidine 2% Cloth) 3 pack [employer]NICIAN PRN TOPICAL 03/31/17 00:45 04/03/17 00:44 (NovoLIN R INJ) See Protocol Table ... [employer] TECHNICIAN PRN SQ 03/31/17 00:45 04/03/17 00:44 Vital Signs / I&O Vital Signs Date Time Temp Pulse Resp B/P (MAP) Pulse Ox O2 Delivery O2 Flow Rate FiO2 03/31/17 04:00 97.1 99 20 141/76 (97) 90 03/31/17 00:00 99.1 90 20 129/77 (94) 92 03/30/17 21:25 96.8 85 18 118/71 (87) 92 03/30/17 20:58 03/30/17 20:51 98.1 94 18 186/106 (132) 95 Nasal Cannula 2.00 03/30/17 17:53 96 18 117/68 (84) 97 Nasal Cannula 2.00 03/30/17 16:29 96 Nasal Cannula 2.00 03/30/17 15:39 97.5 85 15 112/58 (76) 89 I/O 03/30/17 03/30/17 03/30/17 03/31/17 03/31/1703/31/17 07:00 15:00 23:00 07:00 15:00 23:00 Intake Total 240 ml Output Total 300 ml Balance 240 ml -300 ml Intake Oral 240 ml Output Urine Total 300 ml # Voids 1 # Bowel Movements 0 0 Laboratory Laboratory Tests Test 03/30/17 16:00 03/30/17 21:15 03/31/17 07:47 White Blood Count 7.7 TH/MM3 Red Blood Count 3.88 MIL/MM3 Hemoglobin 10.5 GM/DL Hematocrit 32.5 % Mean Corpuscular Volume 83.8 FL Mean Corpuscular Hemoglobin 27.0 PG Mean Corpuscular Hemoglobin Concent 32.3 % Red Cell Distribution Width 16.1 % Platelet Count 220 TH/MM3 Mean Platelet Volume 7.9 FL Neutrophils (%) (Auto) 76.8 % Lymphocytes (%) (Auto) 13.4 % Monocytes (%) (Auto) 8.4 % Eosinophils (%) (Auto) 1.0 % Basophils (%) (Auto) 0.4 % Neutrophils # (Auto) 5.9 TH/MM3 Lymphocytes # (Auto) 1.0 TH/MM3 Monocytes # (Auto) 0.6 TH/MM3 Eosinophils # (Auto) 0.1 TH/MM3 Basophils # (Auto) 0.0 TH/MM3 CBC Comment DIFF FINAL Differential Comment Prothrombin Time 10.1 SEC Prothromb Time International Ratio 1.0 RATIO Activated Partial Thromboplast Time 22.2 SEC Blood Urea Nitrogen 17 MG/DL Creatinine 0.61 MG/DL Random Glucose 82 MG/DL Total Protein 5.9 GM/DL Albumin 2.8 GM/DL Calcium Level 8.2 MG/DL Alkaline Phosphatase 81 U/L Aspartate Amino Transf (AST/SGOT) 30 U/L Alanine Aminotransferase (ALT/SGPT) 17 U/L Total Bilirubin 0.3 MG/DL Sodium Level 141 MEQ/L Potassium Level 4.0 MEQ/L Chloride Level 105 MEQ/L Carbon Dioxide Level 29.5 MEQ/L Anion Gap 7 MEQ/L Estimat Glomerular Filtration Rate 95 ML/MIN Urine Color YELLOW Urine Turbidity CLEAR Urine pH 6.0 Urine Specific Ransom 1.009 Urine Protein NEG mg/dL Urine Glucose (UA) NEG mg/dL Urine Ketones NEG mg/dL Urine Occult Blood NEG Urine Nitrite NEG Urine Bilirubin NEG Urine Urobilinogen LESS THAN 2.0 MG/DL Urine Leukocyte Esterase NEG Urine RBC 1 /hpf Urine WBC 1 /hpf Urine Squamous Epithelial Cells <1 /hpf Urine Hyaline Casts 1 /lpf Urine Mucus FEW /lpf Microscopic Urinalysis Comment CULT NOT INDICATED Imaging Last 24 hours Impressions Cervical Spine CT 03/30/17 1705 Signed Impressions: Service Date/Time: Thursday, March 30, 2017 18:39 - CONCLUSION: 1. No acute fracture or prevertebral soft tissue swelling. Mild spinal stenosis at C4-5 and C5-6. 2. Moderate to severe bilateral foraminal narrowing at C4-5 and C5-6 and [id number] left neural foraminal narrowing at C2-3, C3-4 and C6-7. 3. Small fluid level within the left sphenoid sinus. 4. Right apical fibrotic scarring. Gaurang Reynoso MD Hip and Pelvis X-Ray 03/30/17 1605 Signed Impressions: Service Date/Time: Thursday, March 30, 2017 16:33 - CONCLUSION: 1. Nondisplaced subcapital femoral neck fracture of the right hip. 2. Intact pelvis 3. Status post left hip pinning Carter Weeks MD Head CT 03/30/17 1605 Signed Impressions: Service Date/Time: Thursday, March 30, 2017 18:40 - CONCLUSION: 1. Scattered old lacunar infarcts within the bilateral basal ganglia. 2. Mild periventricular and subcortical white matter small vessel ischemic changes bilaterally. 3. No acute infarct, acute hemorrhage, mass effect or extra- axial fluid collections. Gaurang Reynoso MD Chest X-Ray 03/30/17 1605 Signed Impressions: Service Date/Time: Thursday, March 30, 2017 16:33 - CONCLUSION: 1. Hypoaerated lungs with some minimal airspace disease in the left base. 2. No evidence of consolidating airspace disease. 3. Marked cardiomegaly. MD Yunier Gusman Travis D. PA Mar 31, 2017 08:22
[2017-03-31 08:23] LABS: AUTOMATED NEUTROPHIL # 5.9 TH/MM3 (1.8-7.7); BASOPHIL % 0.4 % (0.0-2.0); EOSINOPHIL # 0.1 TH/MM3 (0-0.4); EOSINOPHIL % 0.7 % (0.0-4.0); HEMATOCRIT 35.3 % (35.0-46.0); HEMO FLAGS DIFF FINAL; LYMPH % 11.2 % (9.0-44.0); LYMPHOCYTE # 0.8 TH/MM3 (1.0-4.8); MEAN CELL VOLUME 84.3 FL (80.0-100.0); MEAN CORPUSCULAR HEMOGLOBIN 26.5 PG (27.0-34.0); MEAN CORPUSCULAR HGB CONC 31.4 % (32.0-36.0); MONO % 8.2 % (0.0-8.0); NEUT % 79.5 % (16.0-70.0); PLATELET COUNT 219 TH/MM3 (150-450); RED BLOOD COUNT 4.19 MIL/MM3 (4.00-5.30); RED CELL DISTRIBUTION WIDTH 15.9 % (11.6-17.2); WHITE BLOOD COUNT 7.4 TH/MM3 (4.0-11.0)
--- NOTE | 2017-03-31 08:32 | PD.CONS ---
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 Patient seen with son at bedside. They deny any history of heart disease, stent placement, vascular disease, CVA. They're unsure why she is on Plavix. Due to her COPD and O2 dependence, she does get dyspneic on exertion. She continues to smoke. They feel that she is limited secondary to her COPD and declined any further cardiac workup and understand that they are moderate to high cardiac risk for surgery. Review of Systems Negative except as stated in the history of present illness Past Family Social History Allergies: Coded Allergies: No Known Allergies (Unverified Allergy, Unknown, 03/30/17) Past Medical History Arthritis Dyslipidemia Hypertension End-stage COPD Hypothyroidism Glaucoma Right ear deafness Past Surgical History Hysterectomy Tonsillectomy Left eye surgery Left hip orthopedic surgery Reported Medications Reported Meds & Active Scripts Active Aspirin 325 Mg Tab 81 Mg PO DAILY Reported Buspirone (Buspirone HCl) 10 Mg Tab 10 Mg PO BID Breo Ellipta Inh (Fluticasone/Vilanterol) 100-25 Mcg/Act Inh 1 Puff INH DAILY Use daily at the same time. Lasix (Furosemide) 20 Mg Tab 20 Mg PO DAILY Gabapentin 100 Mg Cap 100 Mg PO TID Ativan (Lorazepam) 0.5 Mg Tab 0.5 Mg PO HS PRN Megace ES Liq (Megestrol ES Liq) 625 Mg/5 Ml Susp 400 Mg PO DAILY Melatonin Gummies (Melatonin) 2.5 Mg Chw 5 Mg CHEW HS Miralax Powder (Polyethylene Glycol 3350 Powder) 17 Gm Powd 17 Gm PO DAILY Mix and dissolve one measuring cap-ful (17 grams) in water or juice. Sennosides 8.6 Mg Tab 8.6 Mg PO HS Trazodone (Trazodone HCl) 100 Mg Tablet 100 Mg PO HS Xopenex Neb (Levalbuterol HCl) 1.25 Mg/3 Ml Neb 1.25 Mg NEB TID Protonix (Pantoprazole Sodium) 40 Mg Tab 40 Mg PO DAILY Spiriva Handihaler (Tiotropium Inh) 18 Mcg Cap 18 Mcg INH DAILY 1 capsule = 18 mcg Metamucil (Psyllium) 520 Mg Cap 1 Cap PO BID Lisinopril 20 Mg Tab 20 Mg PO DAILY Levothyroxine (Levothyroxine Sodium) 125 Mcg Tab 125 Mcg PO DAILY Cymbalta DR (Duloxetine HCl) 60 Mg Capdr 60 Mg PO DAILY Combigan Opth Drops (Brimonidine-Timolol Opth Drops) 0.2-0.5% Soln 1 Drop LEFT EYE Q12HR Plavix (Clopidogrel Bisulfate) 75 Mg Tab 75 Mg PO DAILY Atorvastatin (Atorvastatin Calcium) 10 Mg Tab 10 Mg PO HS Albuterol Neb (Albuterol Sulfate) 2.5 Mg/0.5 Ml Neb 2.5 Mg NEB Q6HR NEB Note: The Albuterol Sulfate Inhalation Solution is concentrated and must be diluted. Read complete instructions carefully before using. Proventil Hfa 6.7 GM Inh (Albuterol Sulfate) 90 Mcg/Act Aer 2 Puff INH Q4-6H PRN Active Ordered Medications Current Medications Medications (Trade) Dose Ordered Sig/Miki Route Start Time Stop Time Status Last Admin (NS Flush) 2 ml UNSCH PRN IV FLUSH 03/30/17 19:45 (NS Flush) 2 ml BID IV FLUSH 03/30/17 21:00 (Zofran Inj) 4 mg Q6H PRN IVP 03/30/17 19:45 03/31/17 06:54 (Narcan Inj) 0.4 mg UNSCH PRN IV PUSH 03/30/17 19:45 (Morphine Inj) 2 mg Q3H PRN IV PUSH 03/30/17 19:45 03/31/17 07:22 (Proair Hfa Inh) 2 puff Q6HR PRN INH 03/30/17 20:45 (Aspirin) 81 mg DAILY PO 03/31/17 09:00 (Lipitor) 10 mg HS PO 03/30/17 21:00 (Buspar) 10 mg BID PO 03/30/17 21:00 (Plavix) 75 mg DAILY PO 03/31/17 09:00 (Cymbalta Dr) 60 mg DAILY PO 03/31/17 09:00 (Breo Ellipta 100-25 Inh) 1 puff DAILY INH 03/31/17 09:00 (Lasix) 20 mg DAILY PO 03/31/17 09:00 (Neurontin) 100 mg TID PO 03/31/17 09:00 (Synthroid) 125 mcg DAILY@0600 PO 03/31/17 06:00 (Prinivil) 20 mg DAILY PO 03/31/17 09:00 (Ativan) 0.5 mg HS PRN PO 03/30/17 20:45 (Protonix) 40 mg DAILY PO 03/31/17 09:00 (Miralax) 17 gm DAILY PO 03/31/17 09:00 (Senokot) 8.6 mg HS PO 03/30/17 21:00 (Spiriva Inh) 18 mcg DAILY INH 03/31/17 09:00 (Albuterol Neb) 1.25 mg TID NEB NEB 03/31/17 08:00 (Megace Liq) 400 mg DAILY PO 03/31/17 09:00 (Melatonin) 5 mg HS PO 03/30/17 21:00 (Metamucil Smooth Texture Sf/ Gf Pkt) 1 pkt BID PO 03/30/17 21:00 (Desyrel) 100 mg HS PO 03/30/17 21:00 (Duoneb Neb) 1 ampule Q2HR NEB PRN NEB 03/30/17 20:45 (Alphagan 0.2% Opth Soln) 1 drop Q12HR LEFT EYE 03/31/17 09:00 (Timoptic 0.5% Opth Soln) 1 drop Q12HR LEFT EYE 03/31/17 09:00 Lactated Ringer's 1,000 ml @ 30 mls/hr Q24H PRN IV 03/31/17 00:45 04/03/17 00:44 Sodium Chloride 500 ml @ 30 mls/hr [id number] PRN IV 03/31/17 00:45 04/03/17 00:44 (Lopressor) 25 mg [employer]IOR SCI[employer]ANT PRN PO 03/31/17 00:45 04/03/17 00:44 (Betadine 5% Antisepsis Kit) 1 applic [employer]IOR SCIENCE CONSULTANT PRN EACH NARE 03/31/17 00:45 04/03/17 00:44 (Chlorhexidine 2% Cloth) 3 pack S[employer] SCI[employer] CONSULTANT PRN TOPICAL 03/31/17 00:45 04/03/17 00:44 (NovoLIN R INJ) See Protocol Table ... S[employer]IOR SCIENCE CONSULTANT PRN SQ 03/31/17 00:45 12 00:44 Family History Denies significant family medical history. Social History Patient lives at home with , currently on [facility] hospice program for end- stage COPD. Patient states that she still continues to smoke cigarettes, 1/2 ppd. Denies any alcohol or illicit drug use. Physical Exam Vital Signs Vital Signs Date Time Temp Pulse Resp B/P (MAP) Pulse Ox O2 Delivery O2 Flow Rate FiO2 03/31/17 04:00 97.1 99 20 141/76 (97) 90 03/31/17 00:00 99.1 90 20 129/77 (94) 92 03/30/17 21:25 96.8 85 18 118/71 (87) 92 03/30/17 20:58 03/30/17 20:51 98.1 94 18 186/106 (132) 95 Nasal Cannula 2.00 03/30/17 17:53 96 18 117/68 (84) 97 Nasal Cannula 2.00 03/30/17 16:29 96 Nasal Cannula 2.00 03/30/17 15:39 97.5 85 15 112/58 (76) 89 Physical Exam GENERAL: Well-developed well-nourished. In no acute distress. NECK: No carotid bruits. No JVD. CARDIOVASCULAR: Regular rate and rhythm. No murmur appreciated. RESPIRATORY: No accessory muscle use. Clear to auscultation. Coarse breath sounds bilateral bases. MUSCULOSKELETAL: No clubbing or cyanosis. No edema. NEUROLOGICAL: Awake and alert. Normal speech. Laboratory Laboratory Tests Test 03/30/17 16:00 03/30/17 21:15 03/31/17 07:47 White Blood Count 7.7 7.4 Red Blood Count 3.88 4.19 Hemoglobin 10.5 11.1 Hematocrit 32.5 35.3 Mean Corpuscular Volume 83.8 84.3 Mean Corpuscular Hemoglobin 27.0 26.5 Mean Corpuscular Hemoglobin Concent 32.3 31.4 Red Cell Distribution Width 16.1 15.9 Platelet Count 220 219 Mean Platelet Volume 7.9 7.8 Neutrophils (%) (Auto) 76.8 79.5 Lymphocytes (%) (Auto) 13.4 11.2 Monocytes (%) (Auto) 8.4 8.2 Eosinophils (%) (Auto) 1.0 0.7 Basophils (%) (Auto) 0.4 0.4 Neutrophils # (Auto) 5.9 5.9 Lymphocytes # (Auto) 1.0 0.8 Monocytes # (Auto) 0.6 0.6 Eosinophils # (Auto) 0.1 0.1 Basophils # (Auto) 0.0 0.0 CBC Comment DIFF FINAL DIFF FINAL Differential Comment Prothrombin Time 10.1 Prothromb Time International Ratio 1.0 Activated Partial Thromboplast Time 22.2 Blood Urea Nitrogen 17 Creatinine 0.61 Random Glucose 82 Total Protein 5.9 Albumin 2.8 Calcium Level 8.2 Alkaline Phosphatase 81 Aspartate Amino Transf (AST/SGOT) 30 Alanine Aminotransferase (ALT/SGPT) 17 Total Bilirubin 0.3 Sodium Level 141 Potassium Level 4.0 Chloride Level 105 Carbon Dioxide Level 29.5 Anion Gap 7 Estimat Glomerular Filtration Rate 95 Urine Color YELLOW Urine Turbidity CLEAR Urine pH 6.0 Urine Specific [place] 1.009 Urine Protein NEG Urine Glucose (UA) NEG Urine Ketones NEG Urine Occult Blood NEG Urine Nitrite NEG Urine Bilirubin NEG Urine Urobilinogen LESS THAN 2.0 Urine Leukocyte Esterase NEG Urine RBC 1 Urine WBC 1 Urine Squamous Epithelial Cells <1 Urine Hyaline Casts 1 Urine Mucus FEW Microscopic Urinalysis Comment CULT NOT INDICATED Result Diagram: 03/30/17 1600 03/30/17 1600 Imaging Last Impressions Cervical Spine CT 03/30/17 1705 Signed Impressions: Service Date/Time: Thursday, March 30, 2017 18:39 - CONCLUSION: 1. No acute fracture or prevertebral soft tissue swelling. Mild spinal stenosis at C4-5 and C5-6. 2. Moderate to severe bilateral foraminal narrowing at C4-5 and C5-6 and [id number] left neural foraminal narrowing at C2-3, C3-4 and C6-7. 3. Small fluid level within the left sphenoid sinus. 4. Right apical fibrotic scarring. Gaurang Reynoso MD Hip and Pelvis X-Ray 03/30/17 1605 Signed Impressions: Service Date/Time: Thursday, March 30, 2017 16:33 - CONCLUSION: 1. Nondisplaced subcapital femoral neck fracture of the right hip. 2. Intact pelvis 3. Status post left hip pinning Carter Weeks MD Head CT 03/30/17 1605 Signed Impressions: Service Date/Time: Thursday, March 30, 2017 18:40 - CONCLUSION: 1. Scattered old lacunar infarcts within the bilateral basal ganglia. 2. Mild periventricular and subcortical white matter small vessel ischemic changes bilaterally. 3. No acute infarct, acute hemorrhage, mass effect or extra- axial fluid collections. Gaurang Reynoso MD Chest X-Ray 03/30/17 1605 Signed Impressions: Service Date/Time: Thursday, March 30, 2017 16:33 - CONCLUSION: 1. Hypoaerated lungs with some minimal airspace disease in the left base. 2. No evidence of consolidating airspace disease. 3. Marked cardiomegaly. 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 Patient seen with son at bedside. They deny any history of heart disease, stent placement, vascular disease, CVA. They're unsure why she is on Plavix. Right hip fracture: Cardiac clearance requested. Although the patient cannot generate 4 mets, they feel this is secondary to COPD and decline further cardiac workup at this time. The patient is cleared from cardiology perspective at moderate to high risk to proceed with surgery. With no known history of cardiovascular disease, hold Plavix, check P2y12 daily until greater than 200 prior to proceeding with surgery. COPD with chronic respiratory failure on home O2: Pulmonology is being consulted for preoperative clearance as well. Castro Faye Mar 31, 2017 08:32
[2017-03-31 08:40] LABS: PROTHROMBIN TIME - PATIENT 10.3 SEC (9.8-11.6)
[2017-03-31 08:51] LABS: BICARBONATE 27.9 MEQ/L (21.0-32.0); POTASSIUM 3.6 MEQ/L (3.5-5.1)
[2017-03-31] MEDS: TIMOLOL MALEATE 0.5% OPHT SOLN 5 ML BTL LEFT EYE SCH ×2 (09:00→21:00)
[2017-03-31] MEDS ORDERED: CLOPIDOGREL 75 MG TAB PO SCH (09:00)
[2017-03-31] MEDS: MEGESTROL ACETATE SUSP 400 MG/10 ML CUP PO SCH (09:00)
[2017-03-31] MEDS: LISINOPRIL 20 MG TAB PO SCH (09:00)
[2017-03-31] MEDS: PANTOPRAZOLE SOD 40 MG DELAYED RELEASE TAB PO SCH (09:00)
[2017-03-31] MEDS: PSYLLIUM FIBER SF/GF 6 GM POWD PKT PO SCH ×2 (09:00→21:00)
[2017-03-31] MEDS: TIOTROPIUM BROMIDE 18 MCG INH INH SCH (09:00)
[2017-03-31] MEDS: POLYETHYLENE GLYCOL 17 GM PKG PO SCH (09:00)
[2017-03-31] MEDS: DULoxetine HCl DR 60 MG CAP PO SCH (09:00)
[2017-03-31] MEDS ORDERED: ASPIRIN 325 MG TAB PO SCH (09:00)
[2017-03-31] MEDS: BRIMONIDINE TARTRATE 0.2% OPHT SOLN 5 ML BTL LEFT EYE SCH ×2 (09:00→21:00)
[2017-03-31] MEDS: FLUTICASONE 100 MCG/VILANTEROL 25 MCG INHALER INH SCH (09:00)
[2017-03-31] MEDS: FUROSEMIDE 20 MG TAB PO SCH (09:00)
[2017-03-31] MEDS: busPIRone HCL 10 MG TAB PO SCH ×2 (09:00→21:00)
[2017-03-31] MEDS: GABAPENTIN 100 MG CAP PO SCH ×3 (09:53→17:04)
[2017-03-31] MEDS: SODIUM CHLORIDE 0.9% FLUSH 10 ML FLUSH IV FLUSH SCH ×2 (11:22→21:10)
--- NOTE | 2017-03-31 11:37 | HHI.PR ---
Subjective Remarks The patient is in bed she appears in not acute distress at this time. She says pain in her he controlled by medications. She denies any chest pain or shortness of breath she is satting well on 2 L by nasal cannula. Patient and family wants to do surgery today, she is full code at this time. Patient denies any wheezing. No nausea or vomiting no diarrhea or constipation. Objective Vitals Vital Signs Date Time Temp Pulse Resp B/P (MAP) Pulse Ox O2 Delivery O2 Flow Rate FiO2 03/31/17 10:17 15 03/31/17 08:00 96.4 92 20 117/67 (84) 92 03/31/17 04:00 97.1 99 20 141/76 (97) 90 03/31/17 00:00 99.1 90 20 129/77 (94) 92 03/30/17 21:25 96.8 85 18 118/71 (87) 92 03/30/17 20:58 03/30/17 20:51 98.1 94 18 186/106 (132) 95 Nasal Cannula 2.00 03/30/17 17:53 96 18 117/68 (84) 97 Nasal Cannula 2.00 03/30/17 16:29 96 Nasal Cannula 2.00 03/30/17 15:39 97.5 85 15 112/58 (76) 89 I/O 03/30/17 03/30/17 03/30/17 03/31/17 03/31/17 03/31/17 07:00 15:00 23:00 07:00 15:00 23:00 Intake Total 240 ml Output Total 300 ml Balance 240 ml -300 ml Intake Oral 240 ml Output Urine Total 300 ml # Voids 1 # Bowel Movements 0 0 Result Diagram: 03/31/17 0747 03/31/17 0747 Imaging Last Impressions Cervical Spine CT 03/30/17 0145 Signed Impressions: Service Date/Time: Thursday, March 30, 2017 18:39 - CONCLUSION: 1. No acute fracture or prevertebral soft tissue swelling. Mild spinal stenosis at C4-5 and C5-6. 2. Moderate to severe bilateral foraminal narrowing at C4-5 and C5-6 and [id number] left neural foraminal narrowing at C2-3, C3-4 and C6-7. 3. Small fluid level within the left sphenoid sinus. 4. Right apical fibrotic scarring. Gaurang Reynoso MD Hip and Pelvis X-Ray 03/30/17 1605 Signed Impressions: Service Date/Time: Thursday, March 30, 2017 16:33 - CONCLUSION: 1. Nondisplaced subcapital femoral neck fracture of the right hip. 2. Intact pelvis 3. Status post left hip pinning Carter Weeks MD Head CT 03/30/17 1605 Signed Impressions: Service Date/Time: Thursday, March 30, 2017 18:40 - CONCLUSION: 1. Scattered old lacunar infarcts within the bilateral basal ganglia. 2. Mild periventricular and subcortical white matter small vessel ischemic changes bilaterally. 3. No acute infarct, acute hemorrhage, mass effect or extra- axial fluid collections. Gaurang Reynoso MD Chest X-Ray 03/30/17 1605 Signed Impressions: Service Date/Time: Thursday, March 30, 2017 16:33 - CONCLUSION: 1. Hypoaerated lungs with some minimal airspace disease in the left base. 2. No evidence of consolidating airspace disease. 3. Marked cardiomegaly. Carter Weeks MD Objective Remarks GENERAL: This is a frail 76-year-old female, well-nourished, well-developed patient, in no apparent distress. CARDIOVASCULAR: Regular rate and rhythm without murmurs, gallops, or rubs. RESPIRATORY: Clear to auscultation. Breath sounds equal bilaterally. No wheezes , rales, or rhonchi. GASTROINTESTINAL: Abdomen soft, non-tender, nondistended. No hepato-splenomegaly , or palpable masses. No guarding. MUSCULOSKELETAL: Painful right hip on palpation. Decreased range of motion of the hip due to pain. Neurovascular intact. Extremities without clubbing, cyanosis, or edema. No joint tenderness, effusion, or edema noted. No calf tenderness. Negative Homans sign bilaterally. NEUROLOGICAL: Awake and alert. Cranial nerves grossly intact. Motor and sensory grossly within normal limits. Normal speech. A/P Problem List: (1) Closed right hip fracture ICD Code: S72.001A - Fracture of unspecified part of neck of right femur, initial encounter for closed fracture Status: Acute (2) COPD (chronic obstructive pulmonary disease) ICD Code: J44.9 - COPD (chronic obstructive pulmonary disease) Status: Acute (3) Hypertension ICD Code: I10 - Hypertension Status: Acute (4) Hypothyroidism ICD Code: E03.9 - Hypothyroidism Status: Acute (5) Hyperlipidemia ICD Code: E78.5 - Hyperlipidemia Status: Acute (6) Anxiety ICD Code: F41.9 - Anxiety Status: Acute (7) CAD (coronary artery disease) ICD Code: I25.10 - CAD (coronary artery disease) Status: Acute (8) CVA (cerebral infarction) ICD Code: I63.9 - CVA (cerebral infarction) Status: Acute Assessment and Plan Mrs. Cordova is a 76-year-old female with a known medical history of end-stage chronic obstructive pulmonary disease, previous OR with stent placement, hypertension, prior CVA and currently on [facility] hospice who presented to the emergency department after mechanical fall Status post Mechanical fall with resultant right femoral neck fracture Keep nothing by mouth after midnight Consults orthopedic doctor Patient is however with comorbidities with end-stage COPD on chronic oxygen use also extensive cardiac history currently on feet does hospice at home, needs pulmonary and cardiac clearance for surgery. End-stage chronic obstructive pulmonary disease. Chronic respiratory failure on chronic O2 use at home, also patient on [facility] hospice. Doesn't appears exacerbation at this time. Monitor closely Chest x-ray resulted and imaged reviewed by me, no acute cardiopulmonary disease demonstrated. DuoNebs scheduled and PRN Scheduled Symbicort and Spiriva inhaler. Continue O2, titrate to keep SpO2 >92%. Consult pulm for evaluation and clearance for surgery Hypertension, chronic Monitor blood pressure, currently stable. Resume home medications. Coronary artery disease with previous OR with stent placement, on Plavix. EKG reviewed by me, no change from previous Resume home medications, hold aspirin and Plavix as this time. Cardiology consulted for clearance for surgery Mild anemia, chronic: H&H stable at baseline. No obvious signs of bleeding. Continue to monitor. CBC in am. Other chronic medical conditions include hypothyroidism , dyslipidemia, depression, and anxiety are all stable at this time, continue home medications as indicated. GI Prophylaxis: Protonix 40 mg PO daily. DVT prophylaxis: SCD/sTEDs. Chemical prophylaxis per surgeon Discussed Condition With Patient, nurse, family at bedside Note: patient appears stable at this time. Per Dr Merlos ortho is a simple procedure with low risk. Patient /son is aware of risk of deterioration after surgery. Cardiology cleared for surgery. Patient appears stable medically at this point Cleared for surgery. Solange Parks MD Mar 31, 2017 11:37
[2017-03-31] MEDS: RESP: ALBUTEROL 2.5 MG/IPRATROPIUM 0.5 MG NEB (SCH) NEB ×2 (12:33→21:24)
--- NOTE | 2017-03-31 12:52 | MB ---
cc: Dahiana AHN DATE OF CONSULTATION 03/31/2017 HISTORY Ms. Cordova is a 76-year-old white female with severe oxygen-dependent chronic obstructive pulmonary disease actually on [facility] now for about three months. This information is taken from her son who is at the bedside and very cooperative. The patient has been ambulatory with continuous oxygen, but was in severe decline recently so was placed on Hospice. Yesterday she fell, had pain in her right hip, came into the emergency room and chest x-rays revealed a fracture of the right hip that needs surgical repair. She also had a chest x-ray which reveals minimal air space disease at the left base, but nothing acute and a very large heart. She was seen in consultation by cardiology because she has a history of hypertension and cardiomegaly, but family requests no further cardiac interventions recognizing that her risks for surgery are increased. Unfortunately, the patient has smoked most of her life currently smoking several cigarettes every day. She had pneumonia several months ago. This may be the residual we are seeing on the chest x-ray. She has a chronic cough with some congestion. Her son does not feel that that has been any worse lately. When I asked the patient how she is feeling, her only complaint is severe pain in the right leg. PAST MEDICAL HISTORY 1. DJD 2. Hypertension 3. Hypothyroidism 4. Glaucoma 5. Hysterectomy 6. Tonsillectomy 7. A previous surgery on the left hip. ALLERGIES None known. MEDICATIONS Reviewed in the EMR. At home, she does use a nebulizer with Albuterol. She also has Spiriva and oxygen therapy continuously. REVIEW OF SYSTEMS The patient is not currently complaining of chest pain or shortness of breath at rest. PHYSICAL EXAMINATION This is a frail elderly-appearing woman. VITAL SIGNS: 96 degrees, respirations 18-20 nonlabored, pulse is 90, respirations are 20, oximetry on two liters 92%. HEAD, EYES, EARS, NOSE, AND THROAT: Sclerae anicteric. NECK: Veins are flat. CHEST: Minimally congested. No wheezing. CARDIAC: Regular rhythm. No harsh murmur. ABDOMEN: Soft. EXTREMITIES: No edema in the legs. No cyanosis. DISCUSSION Ms. Cordova presents with the fall and an acute fracture of the right hip. No obvious illness causing imminent risk of and she has been ambulatory up to this point. I explained to them that her risk of surgery given the underlying pulmonary process and the enlargement of her heart with uncertainty as to underlying heart disease is certainly increased. It is even possible that she could need ventilatory support postoperatively. Obviously, although she is on Hospice, those orders will be rescinded and she will be a full resuscitation at least in the immediate postoperative period in the event we have to make further interventions. I will place her on aerosolized bronchodilators. Continue her oxygen and further diagnostic and/or therapeutic intervention will depend on her ongoing clinical course. I spoke to her primary hospitalist and told them that after discussion with she and her son, she had pulmonary clearance for the procedure. R. MD GEORGE Becker/OSCAR /12:00 PM /12:31 PM
[2017-03-31] MEDS ORDERED: ACETAMINOPHEN 1000 MG/100 ML 100 ML IV ONE (13:08)
[2017-03-31] MEDS ORDERED: FAMOTIDINE 20 MG/2 ML VIAL ONE (13:09)
[2017-03-31 13:13] LABS: P2Y12 REACTION UNITS (PRU) 149 PRU (194-418)
[2017-03-31] MEDS ORDERED: ceFAZolin 2 GM PREMIX 50 ML IV ONE (14:23)
[2017-03-31] MEDS ORDERED: GENTAMICIN SULFATE 80 MG/2 ML VIAL IRRIGATION ONE (14:37)
[2017-03-31] MEDS: LACTATED RINGER'S 1000 ML INJ 1,000 ML IV SCH (14:53)
[2017-03-31] MEDS ORDERED: MISCELLANEOUS PHARMACY INFORMATION XX ONE (15:00)
[2017-03-31] MEDS ORDERED: ALUMINUM/MAGNESIUM/SIMETH 30 ML CUP PO PRN (15:00)
[2017-03-31] MEDS ORDERED: ONDANSETRON HCL 4 MG/2 ML VIAL IVP PRN (15:00)
[2017-03-31] MEDS ORDERED: ACETAMINOPHEN/HYDROcodone 325 MG/7.5 MG TAB PO PRN (15:00)
[2017-03-31] MEDS ORDERED: MISCELLANEOUS NURSING INFORMATION XX PRN (15:00)
[2017-03-31] MEDS ORDERED: TEMAZEPAM 15 MG CAP PO PRN (15:00)
[2017-03-31] MEDS ORDERED: ENOXAPARIN SODIUM 30 MG/0.3 ML SYRINGE SQ SCH (15:00)
[2017-03-31] MEDS ORDERED: Post-op Orders (for Pharmacy) MISC XX ONE (15:00)
[2017-03-31] MEDS ORDERED: MORPHINE SULFATE 8 MG/ML INJ IM PRN (15:00)
--- NOTE | 2017-03-31 15:01 | PD.CONS ---
HPI Service Orthopedic Surgeons Consult Requested By Reason for Consult Fracture right femoral neck Primary Care Physician Agustín Fitzpatrick MD Admission Diagnosis fall/right hip fracture Diagnoses: (1) Closed right hip fracture (2) COPD (chronic obstructive pulmonary disease) (3) Hypertension (4) Hypothyroidism (5) Hyperlipidemia (6) Anxiety (7) CAD (coronary artery disease) (8) CVA (cerebral infarction) Chief Complaint: Right hip pain after fall History of Present Illness This patient is a pleasant 76-year-old female. She is on hospice because of a combination of medical problems including COPD. She fell and sustained a fracture of the right femoral neck. I have been asked to see her in consultation regarding the same Past Family Social History Past Medical History Arthritis History of [place] Dyslipidemia Hypertension History of CVA End-stage COPD Hypothyroidism Glaucoma Right ear deafness Past Surgical History Hysterectomy Tonsillectomy Left eye surgery Left hip orthopedic surgery Allergies: Coded Allergies: No Known Allergies (Unverified Allergy, Unknown, 03/30/17) Active Ordered Medications Current Medications Medications (Trade) Dose Ordered Sig/Miki Route Start Time Stop Time Status Last Admin (NS Flush) 2 ml UNSCH PRN IV FLUSH 03/30/17 19:45 (NS Flush) 2 ml BID IV FLUSH 03/30/17 21:00 03/31/17 11:22 (Zofran Inj) 4 mg Q6H PRN IVP 03/30/17 19:45 03/31/17 06:54 (Narcan Inj) 0.4 mg UNSCH PRN IV PUSH 03/30/17 19:45 (Morphine Inj) 2 mg Q3H PRN IV PUSH 03/30/17 19:45 03/31/17 10:12 (Proair Hfa Inh) 2 puff Q6HR PRN INH 03/30/17 20:45 (Aspirin) 81 mg DAILY PO 03/31/17 09:00 (Lipitor) 10 mg HS PO 03/30/17 21:00 (Buspar) 10 mg BID PO 03/30/17 21:00 (Cymbalta Dr) 60 mg DAILY PO 03/31/17 09:00 (Breo Ellipta 100-25 Inh) 1 puff DAILY INH 03/31/17 09:00 (Lasix) 20 mg DAILY PO 03/31/17 09:00 (Neurontin) 100 mg TID PO 03/31/17 09:00 03/31/17 12:56 (Synthroid) 125 mcg DAILY@0600 PO 03/31/17 06:00 (Prinivil) 20 mg DAILY PO 03/31/17 09:00 (Ativan) 0.5 mg HS PRN PO 03/30/17 20:45 03/31/17 09:53 (Protonix) 40 mg DAILY PO 03/31/17 09:00 (Miralax) 17 gm DAILY PO 03/31/17 09:00 (Senokot) 8.6 mg HS PO 03/30/17 21:00 (Spiriva Inh) 18 mcg DAILY INH 03/31/17 09:00 (Megace Liq) 400 mg DAILY PO 03/31/17 09:00 (Melatonin) 5 mg HS PO 03/30/17 21:00 (Metamucil Smooth Texture Sf/ Gf Pkt) 1 pkt BID PO 03/30/17 21:00 (Desyrel) 100 mg HS PO 03/30/17 21:00 (Duoneb Neb) 1 ampule Q2HR NEB PRN NEB 03/30/17 20:45 (Alphagan 0.2% Opth Soln) 1 drop Q12HR LEFT EYE 03/31/17 09:00 (Timoptic 0.5% Opth Soln) 1 drop Q12HR LEFT EYE 03/31/17 09:00 Lactated Ringer's 1,000 ml @ 30 mls/hr Q24H PRN IV 03/31/17 00:45 04/03/17 00:44 Sodium Chloride 500 ml @ 30 mls/hr [id number] PRN IV 03/31/17 00:45 04/03/17 00:44 (Lopressor) 25 mg SIGNAL TOWER OPERATOR PRN PO 03/31/17 00:45 04/03/17 00:44 (Betadine 5% Antisepsis Kit) 1 applic SIGNAL TOWER OPERATOR PRN EACH NARE 03/31/17 00:45 04/03/17 00:44 (Chlorhexidine 2% Cloth) 3 pack SIGNAL TOWER OPERATOR PRN TOPICAL 03/31/17 00:45 04/03/17 00:44 (NovoLIN R INJ) See Protocol Table ... SIGNAL TOWER OPERATOR PRN SQ 03/31/17 00:45 04/03/17 00:44 (Duoneb Neb) 1 ampule TID NEB NEB 03/31/17 14:00 Reported Meds & Active Scripts Active Aspirin 325 Mg Tab 81 Mg PO DAILY Reported Buspirone (Buspirone HCl) 10 Mg Tab 10 Mg PO BID Breo Ellipta Inh (Fluticasone/Vilanterol) 100-25 Mcg/Act Inh 1 Puff INH DAILY Use daily at the same time. Lasix (Furosemide) 20 Mg Tab 20 Mg PO DAILY Gabapentin 100 Mg Cap 100 Mg PO TID Ativan (Lorazepam) 0.5 Mg Tab 0.5 Mg PO HS PRN Megace ES Liq (Megestrol ES Liq) 625 Mg/5 Ml Susp 400 Mg PO DAILY Melatonin Gummies (Melatonin) 2.5 Mg Chw 5 Mg CHEW HS Miralax Powder (Polyethylene Glycol 3350 Powder) 17 Gm Powd 17 Gm PO DAILY Mix and dissolve one measuring cap-ful (17 grams) in water or juice. Sennosides 8.6 Mg Tab 8.6 Mg PO HS Trazodone (Trazodone HCl) 100 Mg Tablet 100 Mg PO HS Xopenex Neb (Levalbuterol HCl) 1.25 Mg/3 Ml Neb 1.25 Mg NEB TID Protonix (Pantoprazole Sodium) 40 Mg Tab 40 Mg PO DAILY Spiriva Handihaler (Tiotropium Inh) 18 Mcg Cap 18 Mcg INH DAILY 1 capsule = 18 mcg Metamucil (Psyllium) 520 Mg Cap 1 Cap PO BID Lisinopril 20 Mg Tab 20 Mg PO DAILY Levothyroxine (Levothyroxine Sodium) 125 Mcg Tab 125 Mcg PO DAILY Cymbalta DR (Duloxetine HCl) 60 Mg Capdr 60 Mg PO DAILY Combigan Opth Drops (Brimonidine-Timolol Opth Drops) 0.2-0.5% Soln 1 Drop LEFT EYE Q12HR Plavix (Clopidogrel Bisulfate) 75 Mg Tab 75 Mg PO DAILY Atorvastatin (Atorvastatin Calcium) 10 Mg Tab 10 Mg PO HS Albuterol Neb (Albuterol Sulfate) 2.5 Mg/0.5 Ml Neb 2.5 Mg NEB Q6HR NEB Note: The Albuterol Sulfate Inhalation Solution is concentrated and must be diluted. Read complete instructions carefully before using. Proventil Hfa 6.7 GM Inh (Albuterol Sulfate) 90 Mcg/Act Aer 2 Puff INH Q4-6H PRN Family History Denies significant family medical history. Social History Patient lives at home with , currently on [facility] hospice program for end- stage COPD. Patient states that she still continues to smoke cigarettes, 1/2 ppd. Denies any alcohol or illicit drug use. Physical Exam Vital Signs Vital Signs Date Time Temp Pulse Resp B/P (MAP) Pulse Ox O2 Delivery O2 Flow Rate FiO2 03/31/17 10:17 15 03/31/17 08:00 96.4 92 20 117/67 (84) 92 03/31/17 04:00 97.1 99 20 141/76 (97) 90 03/31/17 00:00 99.1 90 20 129/77 (94) 92 03/30/17 21:25 96.8 85 18 118/71 (87) 92 03/30/17 20:58 03/30/17 20:51 98.1 94 18 186/106 (132) 95 Nasal Cannula 2.00 03/30/17 17:53 96 18 117/68 (84) 97 Nasal Cannula 2.00 03/30/17 16:29 96 Nasal Cannula 2.00 03/30/17 16:29 96 Nasal Cannula 2.00 03/30/17 15:39 97.5 85 15 112/58 (76) 89 Physical Exam The patient is hard of hearing. She is lying in bed. She is in moderate discomfort in the region of her right hip. HEENT: Normocephalic atraumatic pupils equal round reactive. NECK: Supple. No abnormal masses. Full range of motion. CHEST: Clear to auscultation with no rales or rhonchi's or wheezes. HEART: Regular rate and rhythm. No murmurs. ABDOMEN: Soft, nontender, no masses. Normal active bowel sounds. GENITOURINARY: Deferred MUSCULOSKELETAL: Right hip is in Choe's traction. Tenderness to palpation of the region of the right hip. Pain with range of motion. Dorsalis pedis 1+. Sensation appears almost normal Laboratory Laboratory Tests Test 03/30/17 16:00 03/30/17 21:15 03/31/17 07:47 03/31/17 12:15 White Blood Count 7.7 7.4 Red Blood Count 3.88 4.19 Hemoglobin 10.5 11.1 Hematocrit 32.5 35.3 Mean Corpuscular Volume 83.8 84.3 Mean Corpuscular Hemoglobin 27.0 26.5 Mean Corpuscular Hemoglobin Concent 32.3 31.4 Red Cell Distribution Width 16.1 15.9 Platelet Count 220 219 Mean Platelet Volume 7.9 7.8 Neutrophils (%) (Auto) 76.8 79.5 Lymphocytes (%) (Auto) 13.4 11.2 Monocytes (%) (Auto) 8.4 8.2 Eosinophils (%) (Auto) 1.0 0.7 Basophils (%) (Auto) 0.4 0.4 Neutrophils # (Auto) 5.9 5.9 Lymphocytes # (Auto) 1.0 0.8 Monocytes # (Auto) 0.6 0.6 Eosinophils # (Auto) 0.1 0.1 Basophils # (Auto) 0.0 0.0 CBC Comment DIFF FINAL DIFF FINAL Differential Comment Prothrombin Time 10.1 10.3 Prothromb Time International Ratio 1.0 1.0 Activated Partial Thromboplast Time 22.2 Blood Urea Nitrogen 17 15 Creatinine 0.61 0.59 Random Glucose 82 94 Total Protein 5.9 Albumin 2.8 Calcium Level 8.2 8.4 Alkaline Phosphatase 81 Aspartate Amino Transf (AST/SGOT) 30 Alanine Aminotransferase (ALT/SGPT) 17 Total Bilirubin 0.3 Sodium Level 141 140 Potassium Level 4.0 3.6 Chloride Level 105 106 Carbon Dioxide Level 29.5 27.9 Anion Gap 7 6 Estimat Glomerular Filtration Rate 95 99 Urine Color YELLOW Urine Turbidity CLEAR Urine pH 6.0 Urine Specific Dyer 1.009 Urine Protein NEG Urine Glucose (UA) NEG Urine Ketones NEG Urine Occult Blood NEG Urine Nitrite NEG Urine Bilirubin NEG Urine Urobilinogen LESS THAN 2.0 Urine Leukocyte Esterase NEG Urine RBC 1 Urine WBC 1 Urine Squamous Epithelial Cells <1 Urine Hyaline Casts 1 Urine Mucus FEW Microscopic Urinalysis Comment CULT NOT INDICATED Platelet Function P2Y12 React Units 149 Result Diagram: 03/31/17 0747 03/31/17 0747 Imaging Review of x-rays and review of the radiology interpretation shows evidence of a nondisplaced subcapital right femoral neck fracture. There is mild to moderate osteoarthritis of the right hip Assessment & Plan Assessment and Plan Right femoral neck fracture, subcapital, Garden 1 PLAN: This patient was on hospice. Her DNR has been rescinded allowing treatment of her right hip condition. I spoke at length with her son about the condition and treatment options. We recognized that without surgical treatment, this will likely displace becoming a very painful condition which may inhibit the ability for proper and adequate nursing care this patient and her stage of her life. Surgical treatment has risks but this is relatively limited access exposure with a 1 inch incision and percutaneous screws across the right femoral neck. The biggest concern will likely be anesthetic concerns. SURGERY: Open treatment internal fixation right hip fracture with multiple screws. Consent: There are risks with surgery including infection bleeding loss of motion continued pain and need for further surgery neurologic or vascular injury compensation related to her underlying pulmonary ankle and vascular conditions. It is felt that is a reasonable risk to consider surgical treatment in light of the conditions in front of us. Kyrie Merlos MD Mar 31, 2017 15:01
[2017-03-31] MEDS ORDERED: SUGAMMADEX SODIUM 200 MG/2 ML VIAL IV PUSH ONE ×2 (15:05)
--- NOTE | 2017-03-31 15:05 | PD.OP ---
cc: Kyrie Merlos MD Operative Report Date of Surgery: Mar 31, 2017 Preoperative Diagnosis: Right femoral neck fracture, subcapital Postoperative Diagnosis: Same Procedure: Open treatment internal fixation right hip fracture with multiple screws Anesthesia: Gen. Surgeon: Kyrie Merlos Bowling Pin Setters Installer(s): JOSE MIGUEL Crawford Operation and Findings: EBL: 100 cc INDICATION:'s patient is a 76-year-old female with very advanced chronic obstructive pulmonary disease. The patient fell sustaining an injury to her right hip. Her DNR was rescinded allowing appropriate treatment for her right hip fracture. She was cleared for surgical treatment. Proper consent with the son and the patient was obtained. They recognize that there are significant risks with surgery because of her medical conditions. Nonsurgical treatment will likely lead to displacement of the hip fracture which in all likelihood would become a very painful condition limiting ability to offer proper nursing care and would be very difficult to control her pain. Surgical treatment has been considered recognizing that this patient is at significantly higher risk for comp patients and then the normal patient would be of her age without the comorbidity of her COPD NOTE: Angelica Crawford PA-C was present for the entire surgical procedure as my assistant account executive. In my medical opinion her skill and care was necessary for proper management of this patient PROCEDURE: The patient was brought to the operating room and anesthetized in the supine position. He was placed on the fracture table with the right leg held extended. The opposite leg was in the well leg brown. The hip fracture was reduced anatomically. The hip and leg was scrubbed with alcohol followed by Hibiclens followed by ChloraPrep. A timeout was done and antibiotics were given within 1 hour time window. A longitudinal incision was made over the lateral aspect of the hip. This is carried down through skin and subcutaneous tissue. The fascia was opened longitudinally. Deep retractors allowed good visualization. Multiple guide pins were placed across the proximal femur across the neck of the femur. These were placed within the proper position in a parallel fashion into the femoral head. Overall alignment was satisfactory. Reduction was near anatomic. Each pin was measured and then the outer cortex drilled. Proper length 6.5 mm ITS screws were advanced across the cannulated device and into the femoral head. Each screw had good position. Intraoperative x-rays were obtained. Alignment was satisfactory. No complication was noted. The wound was irrigated copiously. Hemostasis was controlled. The fascia was closed with interrupted Vicryl suture, subcutaneous tissue 2-0 Vicryl suture, skin with running intradermal 3-0 Vicryl followed by Steri-Strips and benzoin. A sterile dressing was applied The patient was awakened and taken to the recovery room in satisfactory condition. FINDINGS: There was a mildly displaced femoral neck fracture. This was anatomically aligned with traction and internal rotation. The final fixation was excellent. There was no complication was appreciated. Kyrie Merlos MD Mar 31, 2017 15:05
[2017-03-31] MEDS ORDERED: HYDR-3580 PO (15:09)
[2017-03-31] MEDS ORDERED: ENOX30P SQ (15:09)
--- NOTE | 2017-03-31 16:00 | RADRPT ---
EXAM DATE/TIME: 03/31/2017 14:46 [facility] COMPARISON: HIP RIGHT (AP&LAT 2/3VWS) W AP PELVIS, March 30, 2017, 16:33. INDICATIONS : ORIF right hip fracture. MEDICAL HISTORY : Unobtainable. SURGICAL HISTORY : Unobtainable. ENCOUNTER: Subsequent ACUITY: 2 days PAIN SCORE: Non-responsive. LOCATION: Right hip FINDINGS: A two view examination of the right hip was performed. 3 osseous screws secure the previously identif ied subcapital fracture. Fracture fragments are in excellent anatomic alignment. CONCLUSION: Successful open reduction and internal fixation of the previously identified subcapital fracture as above. Jeovany Ferrell MD on March 31, 2017 at 15:58 Board Certified Radiologist. This report was verified electronically.
--- NOTE | 2017-03-31 16:30 | EKG ---
Date Performed: 03/30/2017 Time Performed: 16:21:25 PTAGE: 76 years EKG: Sinus rhythm WITH OCCASIONAL SUPRAVENTRICULAR PREMATURE COMPLEXES POSSIBLE RIGHT VENTRICULAR CONDUCTION DELAY MIN IMAL VOLTAGE CRITERIA FOR LVH, CONSIDER NORMAL VARIANT NONSPECIFIC ST T-WAVE ABNORMALITY BORDERLINE ECG Since PREVIOUS TRACING , no significant change noted PREVIOUS TRACIN08/23/2016 08.14 DOCTOR: Gerald Sauer Interpretating Date/Time 03/31/2017 16:30:01
[2017-03-31] MEDS ORDERED: DO NOT ADM ANY ANTICOAGULANT DRUGS PRN (17:00)
[2017-03-31] MEDS: traZODone HCL 100 MG TAB PO SCH (21:00)
[2017-03-31] MEDS: MELATONIN 5 MG TAB PO SCH (21:00)
[2017-03-31] MEDS: MAGNESIUM HYDROXIDE SUSP 30 ML CUP PO SCH (21:10)
[2017-03-31] MEDS: SENNOSIDES 8.6 MG TAB PO SCH ×2 (21:10→21:11)
[2017-03-31] MEDS: ATORVASTATIN 10 MG TAB PO SCH (21:10)
[2017-04-01] VITALS (9 sets, daily range): BP systolic 92–152; BP diastolic 57–69; PULSE 62–95; RESP 16–30; TEMP 95.6–98; O2SAT 90–98
[2017-04-01] MEDS: ENOXAPARIN SODIUM 30 MG/0.3 ML SYRINGE SQ SCH (03:14)
[2017-04-01] MEDS: LACTATED RINGER'S 1000 ML INJ 1,000 ML IV SCH ×2 (04:56→15:53)
[2017-04-01] MEDS: MORPHINE SULFATE 2 MG/ML INJ IV PUSH PRN (05:33)
[2017-04-01] MEDS: RESP: ALBUTEROL 2.5 MG/IPRATROPIUM 0.5 MG NEB (PRN) NEB (05:38)
[2017-04-01] MEDS: ONDANSETRON HCL 4 MG/2 ML VIAL IVP PRN (06:03)
[2017-04-01 06:42] LABS: CREATINE KINASE 208 U/L (26-192)
[2017-04-01 06:57] LABS: CKMB 1.4 NG/ML (0.5-3.6)
[2017-04-01] MEDS: LEVOTHYROXINE SODIUM 125 MCG TAB PO SCH (07:08)
[2017-04-01] MEDS: RESP: ALBUTEROL 2.5 MG/IPRATROPIUM 0.5 MG NEB (SCH) NEB ×3 (07:48→19:39)
--- NOTE | 2017-04-01 07:52 | EKG ---
Date Performed: 04/01/2017 Time Performed: 05:15:39 PTAGE: 76 years EKG: Sinus rhythm WITH OCCASIONAL ECTOPIC PREMATURE COMPLEXES POSSIBLE RIGHT VENTRICULAR CONDUCTION DELAY BORDERLINE E CG No significant change from prior electrocardiogram. PREVIOUS TRACING : 03/30/2017 16.21 DOCTOR: Duncan Hurst Interpretating Date/Time 04/01/2017 07:50:25
--- NOTE | 2017-04-01 08:13 | PD.ORT.PN ---
Subjective Subjective Remarks Significant anxiety. Shortness of breath which is not new. Patient with severe COPD. Patient was on hospice before right hip fracture. DNR was rescinded long enough for surgical treatment and then probable return to hospice. Discussed with son yesterday at length. Patient appears stable Objective Vitals Vital Signs Date Time Temp Pulse Resp B/P (MAP) Pulse Ox O2 Delivery O2 Flow Rate FiO2 04/01/17 04:00 98.0 69 18 106/57 (73) 95 04/01/17 03:50 62 04/01/17 00:00 97.7 87 16 92/61 (71) 92 03/31/17 23:46 81 03/31/17 21:27 92 Nasal Cannula 3.00 03/31/17 20:00 96.6 101 19 93/55 (68) 93 03/31/17 19:43 107 03/31/17 19:41 105 03/31/17 16:30 96.3 87 17 132/76 (94) 95 03/31/17 15:45 82 19 154/71 (98) 94 Nasal Cannula 4 03/31/17 15:30 85 19 148/82 (104) 94 Nasal Cannula 4 03/31/17 15:15 88 23 148/77 (100) 94 Nasal Cannula 4 03/31/17 15:09 100.8 89 19 146/72 (96) 97 Simple Mask 6 03/31/17 12:00 97.0 89 19 130/72 (91) 95 03/31/17 10:17 15 I/O 03/31/17 03/31/17 03/31/17 04/01/17 04/01/17 04/01/17 07:00 15:00 23:00 07:00 15:00 23:00 Intake Total 200 ml 360 ml 240 ml Output Total 300 ml 5 ml Balance -300 ml 195 ml 360 ml 240 ml Intake Oral 360 ml 240 ml IV Total 200 ml Output Urine Total 300 ml Estimated Blood Loss 5 ml # Voids 3 1 1 # Bowel Movements 0 Result Diagram: 03/31/17 0747 03/31/17 0747 Objective Remarks Shortness of breath and receiving a breathing treatment. Incision completely dry. No significant swelling. No pain to palpation. No abnormal distal swelling or calf tenderness. Assessment & Plan Ortho Post Op Day #: 1 Problem List: Assessment and Plan Right femoral neck fracture, subcapital, Garden 1 ORIF right hip fracture with multiple screws: POD #1 PLAN: This patient was on hospice. Her DNR has been rescinded allowing treatment of her right hip condition. I spoke at length with her son about the condition and treatment options. We recognized that without surgical treatment, this will likely displace becoming a very painful condition which may inhibit the ability for proper and adequate nursing care this patient and her stage of her life. Surgical treatment has risks but this is relatively limited access exposure with a 1 inch incision and percutaneous screws across the right femoral neck. The biggest concern will likely be anesthetic concerns. Looks stable. [place] for pain. Lovenox for DVT prophylaxis if agreeable with medical staff. Discharge when stable and cleared by medical staff. We'll likely return to hospice. Toe-touch weightbearing. No dressing change. Follow-up in 2 weeks Kyrie Merlos MD Apr 01, 2017 08:13
[2017-04-01 08:17] LABS: HEMATOCRIT 34.2 % (35.0-46.0)
[2017-04-01] MEDS ORDERED: LORazepam 2 MG/ML VIAL ONE (08:19)
[2017-04-01 08:20] LABS: REVIEW FLAG FINAL
--- NOTE | 2017-04-01 08:21 | RADRPT ---
EXAM DATE/TIME: 04/01/2017 08:05 [facility] COMPARISON: CHEST SINGLE AP, March 30, 2017, 16:33. INDICATIONS : Shortness of breath. MEDICAL HISTORY : Hypertension. Chronic obstructive pulmonary disease. Emphysema. SURGICAL HISTORY : Hysterectomy. ENCOUNTER: Subsequent ACUITY: 3 days PAIN SCORE: 0/10 LOCATION: Bilateral chest FINDINGS: Stable left lower lung zone airspace disease. More prominent ill-defined nodular opacity in the right midlung. Mild diffuse interstitial prominence. Cardiac silhouette is enlarged. Remainder of the exam is unchanged. CONCLUSION: 1. Stable left lower lung zone airspace disease. 2. More prominent ill-defined nodular opacity in the right midlung which may reflect atelectasis. Rec ommend followup to resolution. 3. Cardiomegaly. Thierry Waller MD on April 01, 2017 at 8:17 Board Certified Radiologist. This report was verified electronically.
[2017-04-01] MEDS: FUROSEMIDE 20 MG TAB PO SCH (08:26)
[2017-04-01] MEDS: GABAPENTIN 100 MG CAP PO SCH ×3 (08:26→18:22)
[2017-04-01] MEDS: DULoxetine HCl DR 60 MG CAP PO SCH (08:26)
[2017-04-01] MEDS: ASPIRIN 81 MG CHEW TAB PO SCH (08:27)
[2017-04-01] MEDS: MAGNESIUM HYDROXIDE SUSP 30 ML CUP PO SCH ×2 (08:27→21:31)
[2017-04-01] MEDS: LISINOPRIL 20 MG TAB PO SCH (08:27)
[2017-04-01] MEDS: busPIRone HCL 10 MG TAB PO SCH ×2 (08:27→21:31)
[2017-04-01] MEDS: FLUTICASONE 100 MCG/VILANTEROL 25 MCG INHALER INH SCH (08:28)
[2017-04-01] MEDS: TIOTROPIUM BROMIDE 18 MCG INH INH SCH (08:28)
[2017-04-01] MEDS ORDERED: methylPREDNISolone SOD SUCC 125 MG/2 ML VIAL IV PUSH ONE (08:30)
[2017-04-01] MEDS ORDERED: LORazepam 2 MG/ML VIAL IM ONE (08:30)
--- NOTE | 2017-04-01 08:50 | HHI.PR ---
Subjective Remarks Paged by the nurse earlier . patient with respiratory distress hypoxia desattign in 70s . Patient was seen appears in acute distress with sob , using accessory respiratory muscle, very anxious. No chest pain . No n/v/d/c. Objective Vitals Vital Signs Date Time Temp Pulse Resp B/P (MAP) Pulse Ox O2 Delivery O2 Flow Rate FiO2 04/01/17 07:30 95.6 82 30 152/67 (95) 98 04/01/17 04:00 98.0 69 18 106/57 (73) 95 04/01/17 03:50 62 04/01/17 00:00 97.7 87 16 92/61 (71) 92 03/31/17 23:46 81 03/31/17 21:27 92 Nasal Cannula 3.00 03/31/17 20:00 96.6 101 19 93/55 (68) 93 03/31/17 19:43 107 03/31/17 19:41 105 03/31/17 16:30 96.3 87 17 132/76 (94) 95 03/31/17 15:45 82 19 154/71 (98) 94 Nasal Cannula 4 03/31/17 15:30 85 19 148/82 (104) 94 Nasal Cannula 4 03/31/17 15:15 88 23 148/77 (100) 94 Nasal Cannula 4 03/31/17 15:09 100.8 89 19 146/72 (96) 97 Simple Mask 6 03/31/17 12:00 97.0 89 19 130/72 (91) 95 03/31/17 10:17 15 I/O 03/31/17 03/31/17 03/31/17 04/01/17 04/01/17 04/01/17 07:00 15:00 23:00 07:00 15:00 23:00 Intake Total 200 ml 360 ml 240 ml Output Total 300 ml 5 ml Balance -300 ml 195 ml 360 ml 240 ml Intake Oral 360 ml 240 ml IV Total 200 ml Output Urine Total 300 ml Estimated Blood Loss 5 ml # Voids 3 1 1 # Bowel Movements 0 Result Diagram: 04/01/17 0535 03/31/17 0747 Imaging Last Impressions Chest X-Ray 04/01/17 0000 Signed Impressions: Service Date/Time: Saturday, April 01, 2017 08:05 - CONCLUSION: 1. Stable left lower lung zone airspace disease. 2. More prominent ill-defined nodular opacity in the right midlung which may reflect atelectasis. Recommend followup to resolution. 3. Cardiomegaly. Thierry Waller MD Hip X-Ray 03/31/17 0000 Signed Impressions: Service Date/Time: March 14:46 - CONCLUSION: Successful open reduction and internal fixation of the previously identified subcapital fracture as above. Jeovany Ferrell MD Cervical Spine CT 03/30/17 1705 Signed Impressions: Service Date/Time: Thursday, March 30, 2017 18:39 - CONCLUSION: 1. No acute fracture or prevertebral soft tissue swelling. Mild spinal stenosis at C4-5 and C5-6. 2. Moderate to severe bilateral foraminal narrowing at C4-5 and C5-6 and [id number] left neural foraminal narrowing at C2-3, C3-4 and C6-7. 3. Small fluid level within the left sphenoid sinus. 4. Right apical fibrotic scarring. Gaurang Reynoso MD Hip and Pelvis X-Ray 03/30/17 1605 Signed Impressions: Service Date/Time: Thursday, March 30, 2017 16:33 - CONCLUSION: 1. Nondisplaced subcapital femoral neck fracture of the right hip. 2. Intact pelvis 3. Status post left hip pinning Carter Weeks MD Head CT 03/30/17 1605 Signed Impressions: Service Date/Time: Thursday, March 30, 2017 18:40 - CONCLUSION: 1. Scattered old lacunar infarcts within the bilateral basal ganglia. 2. Mild periventricular and subcortical white matter small vessel ischemic changes bilaterally. 3. No acute infarct, acute hemorrhage, mass effect or extra- axial fluid collections. Gaurang Reynoso MD Objective Remarks GENERAL: This is a frail 76-year-old female, well-nourished, well-developed patient, in no apparent distress. CARDIOVASCULAR: Regular rate and rhythm without murmurs, gallops, or rubs. RESPIRATORY: Clear to auscultation. Breath sounds equal bilaterally. No wheezes , rales, or rhonchi. GASTROINTESTINAL: Abdomen soft, non-tender, nondistended. No hepato-splenomegaly , or palpable masses. No guarding. MUSCULOSKELETAL: Painful right hip on palpation. Decreased range of motion of the hip due to pain. Neurovascular intact. Extremities without clubbing, cyanosis, or edema. No joint tenderness, effusion, or edema noted. No calf tenderness. Negative Homans sign bilaterally. NEUROLOGICAL: Awake and alert. Cranial nerves grossly intact. Motor and sensory grossly within normal limits. Normal speech. Procedures Right femoral neck fracture, subcapital s/p Open treatment internal fixation right hip fracture with multiple screws A/P Problem List: (1) Closed right hip fracture ICD Code: S72.001A - Fracture of unspecified part of neck of right femur, initial encounter for closed fracture Status: Acute (2) COPD (chronic obstructive pulmonary disease) ICD Code: J44.9 - COPD (chronic obstructive pulmonary disease) Status: Acute (3) Hypertension ICD Code: I10 - Hypertension Status: Acute (4) Hypothyroidism ICD Code: E03.9 - Hypothyroidism Status: Acute (5) Hyperlipidemia ICD Code: E78.5 - Hyperlipidemia Status: Acute (6) Anxiety ICD Code: F41.9 - Anxiety Status: Acute (7) CAD (coronary artery disease) ICD Code: I25.10 - CAD (coronary artery disease) Status: Acute (8) CVA (cerebral infarction) ICD Code: I63.9 - CVA (cerebral infarction) Status: Acute Assessment and Plan Mrs. Cordova is a 76-year-old female with a known medical history of end-stage chronic obstructive pulmonary disease, previous [place] with stent placement, hypertension, prior CVA and currently on [facility] who presented to the emergency department after mechanical fall Status post Mechanical fall with resultant right femoral neck fracture, subcapital s/p ORIF right hip fracture with multiple screws by Dr Kyrie albarado on 03/31/17 Orthopedic doctor ff Management per surgeon End-stage chronic obstructive pulmonary disease. Chronic respiratory failure on chronic O2 use at home, also patient on [facility]. Doesn't appears exacerbation at this time. Monitor closely Chest x-ray resulted and imaged reviewed by me, no acute cardiopulmonary disease demonstrated. DuoNebs scheduled and PRN Scheduled Symbicort and Spiriva inhaler. Continue O2, titrate to keep SpO2 >92%. Consult pulm cleared for surgery Postsurgical noted sob, dessating and with agitation on 04/01/17 morning, placed on NRM. Stat ABG reviewed, tapr O2 to NC as tolerated. CXR reviewed stable. Received solumedrol IVP, duonebs,Ativan with some improvement. Patient with nicotive withdrawals also discussed with Dr Gaurang lowry to start nicotine patch. Start nicotine patch and ativan more often 0.5 mg po tid as need. Monitor closely VS Pulnoel calixto Hypertension, chronic Monitor blood pressure, currently stable. Resume home medications. Coronary artery disease with previous PA with stent placement, on Plavix. EKG reviewed by me, no change from previous Resume home medications, hold aspirin and Plavix as this time. Cardiology consulted for clearance for surgery Mild anemia, chronic: H&H stable at baseline. No obvious signs of bleeding. Continue to monitor. CBC in am. Other chronic medical conditions include hypothyroidism , dyslipidemia, depression, and anxiety are all stable at this time, continue home medications as indicated. GI Prophylaxis: Protonix 40 mg PO daily. DVT prophylaxis: SCD/sTEDs. Chemical prophylaxis per surgeon Discussed Condition With Patient, nurse, family at bedside, Dr Gaurang albarado, Dr Penny costello MIKE plan : poss DC tomorrow if improved and cleared by consultants/ CM ff DC to SNF. [id number] form signed. Solange Parks MD Apr 01, 2017 08:50
[2017-04-01] MEDS: SODIUM CHLORIDE 0.9% FLUSH 10 ML FLUSH IV FLUSH SCH ×2 (08:56→21:40)
[2017-04-01] MEDS ORDERED: RESP: ALBUTEROL 2.5 MG/IPRATROPIUM 0.5 MG NEB (SCH) NEB ONE (09:00)
[2017-04-01] MEDS: REMOVE OLD PATCH T-DERMAL SCH (09:00)
[2017-04-01] MEDS: TIMOLOL MALEATE 0.5% OPHT SOLN 5 ML BTL LEFT EYE SCH ×2 (09:00→21:40)
[2017-04-01] MEDS: BRIMONIDINE TARTRATE 0.2% OPHT SOLN 5 ML BTL LEFT EYE SCH ×2 (09:00→21:40)
[2017-04-01 09:08] LABS: BLOOD GAS BASE EXCESS 2.6 mmol/L (-2-2); BLOOD GAS CARBOXYHEMOGLOBIN 1.2 % (0-4); BLOOD GAS HCO3 26 mmol/L (22-26); BLOOD GAS METHEMOGLOBIN 1.2 % (0-2); BLOOD GAS O2 HGB SATURATION 92 % (90-100); BLOOD GAS OXYGEN CONTENT 12.6 Vol % (12.0-20.0); BLOOD GAS PCO2 35 mmHg (38-42); BLOOD GAS PO2 68 mmHg (61-120); BLOOD GAS TOTAL HGB 9.7 G/DL (12.0-16.0); TEMP CORR TO 98.6
[2017-04-01 09:09] LABS: CRITICAL VALUE NO; DRAW SITE RT RADIAL; LITER FLOW 4 L/M; NUMBER OF ARTERIAL PUNCTURES 1; OXYGEN DEVICE NASAL CANNULA; STAT YES; ULNAR PULSE PRESENT
[2017-04-01] MEDS ORDERED: LORazepam 2 MG/ML VIAL IV PUSH ONE (09:19)
[2017-04-01] MEDS: MEGESTROL ACETATE SUSP 400 MG/10 ML CUP PO SCH (10:09)
[2017-04-01] MEDS: POLYETHYLENE GLYCOL 17 GM PKG PO SCH (10:09)
[2017-04-01] MEDS: PANTOPRAZOLE SOD 40 MG DELAYED RELEASE TAB PO SCH (10:09)
[2017-04-01] MEDS: NICOTINE 21 MG/24 HR PATCH T-DERMAL SCH (10:10)
[2017-04-01] MEDS: PSYLLIUM FIBER SF/GF 6 GM POWD PKT PO SCH ×2 (10:10→21:32)
[2017-04-01] MEDS: ACETAMINOPHEN/HYDROcodone 325 MG/7.5 MG TAB PO PRN (12:48)
[2017-04-01] MEDS ORDERED: NICO21DI2 T-DERMAL (14:14)
[2017-04-01] MEDS ORDERED: LORA-392 PO (14:14)
--- NOTE | 2017-04-01 14:15 | HHI.DS ---
Discharge Summary Admission Date Mar 30, 2017 at 19:24 Discharge Date: Apr 01, 2017 Admitting Diagnosis fall/right hip fracture (1) Closed right hip fracture ICD Code: S72.001A - Fracture of unspecified part of neck of right femur, initial encounter for closed fracture Status: Acute (2) COPD (chronic obstructive pulmonary disease) ICD Code: J44.9 - COPD (chronic obstructive pulmonary disease) Status: Acute (3) Hypertension ICD Code: I10 - Hypertension Status: Acute (4) Hypothyroidism ICD Code: E03.9 - Hypothyroidism Status: Acute (5) Hyperlipidemia ICD Code: E78.5 - Hyperlipidemia Status: Acute (6) Anxiety ICD Code: F41.9 - Anxiety Status: Acute (7) CAD (coronary artery disease) ICD Code: I25.10 - CAD (coronary artery disease) Status: Acute (8) CVA (cerebral infarction) ICD Code: I63.9 - CVA (cerebral infarction) Status: Acute Procedures right femoral neck fracture, subcapital s/p ORIF right hip fracture with multiple screws by Dr Kyrie albarado on 03/31/17 Brief History - From Admission 76-year-old female with a known medical history of end-stage chronic obstructive pulmonary disease on [facility], previous [place] with stent placement, hypertension, prior CVA and currently on [facility] who presented to the emergency department after mechanical fall for further evaluation of right hip pain. Patient was in the truck and apparently she tried to get out of the truck and fell. She denies any cp, sob, lightheadedness. She is on chronic O2 use. per son she is still smoking. She denies any associated nausea, vomiting or diarrhea. Also denies any associated chest pain, palpitations, recent fevers, chills or cough. Presently, patient is seen and examined by myself and Dr. Hernandez in emergency room with daughter at bedside. She is awake and alert however somnolent as she received pain meds. She is currently not in pain. Patient is found with closed right neck femoral fractures, ortho consulted recommends NPO after midnight . However patient with severe copd an cardiac history will consult pulm and cardiology for clearance for surgery. Patient was DNR however family /patient reversed DNR and if surgery indicated they agree for surgery. Patient is fairly mobile and walks with a walker at home. CBC/BMP: 04/01/17 0535 03/31/17 0747 Significant Findings Laboratory Tests Test 03/30/17 16:00 03/30/17 21:15 03/31/17 07:47 03/31/17 12:15 Red Blood Count 3.88 MIL/MM3 (4.00-5.30) Hemoglobin 10.5 GM/DL (11.6-15.3) 11.1 GM/DL (11.6-15.3) Hematocrit 32.5 % (35.0-46.0) Neutrophils (%) (Auto) 76.8 % (16.0-70.0) 79.5 % (16.0-70.0) Monocytes (%) (Auto) 8.4 % (0.0-8.0) 8.2 % (0.0-8.0) Activated Partial Thromboplast Time 22.2 SEC (24.3-30.1) Total Protein 5.9 GM/DL (6.4-8.2) Albumin 2.8 GM/DL (3.4-5.0) Calcium Level 8.2 MG/DL (8.5-10.1) 8.4 MG/DL (8.5-10.1) Urine Mucus FEW /lpf (OCC) Mean Corpuscular Hemoglobin 26.5 PG (27.0-34.0) Mean Corpuscular Hemoglobin Concent 31.4 % (32.0-36.0) Lymphocytes # (Auto) 0.8 TH/MM3 (1.0-4.8) Platelet Function P2Y12 React Units 149 PRU (194-418) Test 04/01/17 05:35 04/01/17 08:51 Hemoglobin 10.8 GM/DL (11.6-15.3) Hematocrit 34.2 % (35.0-46.0) Total Creatine Kinase 208 U/L (26-192) Troponin I LESS THAN 0.02 NG/ML Blood Gas Base Excess 2.6 mmol/L (-2-2) Arterial Blood pH 7.48 (7.380-7.420) Arterial Blood Partial Pressure CO2 35 mmHg (38-42) Blood Gas Hemoglobin 9.7 G/DL (12.0-16.0) Imaging Last Impressions Chest X-Ray 04/01/17 0000 Signed Impressions: Service Date/Time: Saturday, April 01, 2017 08:05 - CONCLUSION: 1. Stable left lower lung zone airspace disease. 2. More prominent ill-defined nodular opacity in the right midlung which may reflect atelectasis. Recommend followup to resolution. 3. Cardiomegaly. Thierry Waller MD Hip X-Ray 03/31/17 0000 Signed Impressions: Service Date/Time: March 14:46 - CONCLUSION: Successful open reduction and internal fixation of the previously identified subcapital fracture as above. Jeovany Ferrell MD Cervical Spine CT 03/30/17 1705 Signed Impressions: Service Date/Time: Thursday, March 30, 2017 18:39 - CONCLUSION: 1. No acute fracture or prevertebral soft tissue swelling. Mild spinal stenosis at C4-5 and C5-6. 2. Moderate to severe bilateral foraminal narrowing at C4-5 and C5-6 and [id number] left neural foraminal narrowing at C2-3, C3-4 and C6-7. 3. Small fluid level within the left sphenoid sinus. 4. Right apical fibrotic scarring. Gaurang Reynoso MD Hip and Pelvis X-Ray 03/30/17 1605 Signed Impressions: Service Date/Time: Thursday, March 30, 2017 16:33 - CONCLUSION: 1. Nondisplaced subcapital femoral neck fracture of the right hip. 2. Intact pelvis 3. Status post left hip pinning Carter Weeks MD Head CT 03/30/17 1605 Signed Impressions: Service Date/Time: Thursday, March 30, 2017 18:40 - CONCLUSION: 1. Scattered old lacunar infarcts within the bilateral basal ganglia. 2. Mild periventricular and subcortical white matter small vessel ischemic changes bilaterally. 3. No acute infarct, acute hemorrhage, mass effect or extra- axial fluid collections. Gaurang Reynoso MD PE at Discharge GENERAL: This is a frail 76-year-old female, well-nourished, well-developed patient, in no apparent distress. CARDIOVASCULAR: Regular rate and rhythm without murmurs, gallops, or rubs. RESPIRATORY: Clear to auscultation. Breath sounds equal bilaterally. No wheezes , rales, or rhonchi. GASTROINTESTINAL: Abdomen soft, non-tender, nondistended. No hepato-splenomegaly , or palpable masses. No guarding. MUSCULOSKELETAL: Painful right hip on palpation. Decreased range of motion of the hip due to pain. Neurovascular intact. Extremities without clubbing, cyanosis, or edema. No joint tenderness, effusion, or edema noted. No calf tenderness. Negative Homans sign bilaterally. NEUROLOGICAL: Awake and alert. Cranial nerves grossly intact. Motor and sensory grossly within normal limits. Normal speech. Pt update on day of discharge In the chair. No pain. Less anxious. No sob or wheezing. Improved. Did walk with PT. Pain is controlled by meds. Hospital Course Mrs. Cordova is a 76-year-old female with a known medical history of end-stage chronic obstructive pulmonary disease, previous [place] with stent placement, hypertension, prior CVA and currently on [facility] who presented to the emergency department after mechanical fall. Status post Mechanical fall with resultant right femoral neck fracture, subcapital s/p ORIF right hip fracture with multiple screws by Dr Kyrie Sheridan ortho on 03/31/17. Patient also with End-stage chronic obstructive pulmonary disease. Chronic respiratory failure on chronic O2 use at home, also patient on [facility]. Was cleared by pulm for surgery. Chest x-ray resulted and imaged reviewed by me, no acute cardiopulmonary disease demonstrated. Postsurgical noted sob, dessating and with agitation on 04/01/17 morning, placed on NRM. Stat ABG reviewed, tapr O2 to NC as tolerated. CXR reviewed stable. Received solumedrol IVP, duonebs,Ativan with some improvement. Patient with nicotive withdrawals also discussed with Dr Gaurang lowry to start nicotine patch. Started nicotine patch and ativan more often 0.5 mg po tid as need. Patient improved, she was cleared for DC, discharged in stable condition to SNF to follow up as OP with PCP and consultants. Pt Condition on Discharge: Stable Discharge Disposition: Discharge to SNF Discharge Time: > 30 minutes Discharge Instructions DIET: Follow Instructions for: Heart Healthy Diet Activities you can perform: Weight Bearing as [facility] Follow up Referrals: Orthopedics - 2 Weeks with Kyrie Merlos MD PCP Follow-up - 2-3 Days Pulmonology - 1 Week with Dahiana Francis MD New Medications: Nicotine Patch (Nicotine Patch) 21 Mg/24 Hr Patch 21 MG T-DERMAL DAILY for Smoking Cessation, #30 PATCH 0 Refills Enoxaparin Inj (Lovenox Inj) 30 Mg/0.3 Ml Syr 30 MG SQ Q24H for Prevent Blood Clot, #30 INJECTION Hydrocodone/Acetaminophen (Hydrocodone-Acetamin 7.5-325) 7.5 Mg-325 Mg Tablet 1 TAB PO Q4H PRN for PAIN, #40 TAB Continued Medications: Albuterol 6.7 GM Inh (Proventil Hfa 6.7 GM Inh) 90 Mcg/Act Aer 2 PUFF INH Q4-6H PRN for SHORTNESS OF BREATH, #1 INHALER 0 Refills Albuterol Neb (Albuterol Neb) 2.5 Mg/0.5 Ml Neb 2.5 MG NEB Q6HR NEB, BOX Note: The Albuterol Sulfate Inhalation Solution is concentrated and must be diluted. Read complete instructions carefully before using. Aspirin (Aspirin) 325 Mg Tab 81 MG PO DAILY for proph, #30 TAB Atorvastatin (Atorvastatin) 10 Mg Tab 10 MG PO HS for Cholesterol Management, #30 TAB 0 Refills Brimonidine-Timolol Opth Drops (Combigan Opth Drops) 0.2-0.5% Soln 1 DROP LEFT EYE Q12HR for Glaucoma, BOTTLE 0 Refills Buspirone (Buspirone) 10 Mg Tab 10 MG PO BID for Anxiety, TAB 0 Refills Clopidogrel (Plavix) 75 Mg Tab 75 MG PO DAILY for Blood Clot Prevention, #30 TAB [address] (Cymbalta DR) 60 Mg Capdr 60 MG PO DAILY, #30 CAP 0 Refills Fluticasone-Vilanterol Inh (Breo Ellipta Inh) 100-25 Mcg/Act Inh 1 PUFF INH DAILY, #1 INHALER 0 Refills Use daily at the same time. Furosemide (Lasix) 20 Mg Tab 20 MG PO DAILY, #30 TAB 0 Refills Gabapentin (Gabapentin) 100 Mg Cap 100 MG PO TID, #90 CAP 0 Refills Levalbuterol Neb (Xopenex Neb) 1.25 Mg/3 Ml Neb 1.25 MG NEB TID for Breathing Treatment, #1 NEBULE 0 Refills Levothyroxine (Levothyroxine) 125 Mcg Tab 125 MCG PO DAILY for Thyroid, #30 TAB 0 Refills Lisinopril (Lisinopril) 20 Mg Tab 20 MG PO DAILY, #30 TAB 0 Refills Lorazepam (Ativan) 0.5 Mg Tab 0.5 MG PO HS PRN for ANXIETY AND/OR AGITATION, #30 TAB 0 Refills (This prescription has been renewed) Megestrol ES Liq (Megace ES Liq) 625 Mg/5 Ml Susp 400 MG PO DAILY for Improve Appetite, #240 ML 0 Refills Melatonin (Melatonin Gummies) 2.5 Mg Chw 5 MG CHEW HS Pantoprazole (Protonix) 40 Mg Tab 40 MG PO DAILY for Reflux, #30 TAB 0 Refills Polyethylene Glycol 3350 Powder (Miralax Powder) 17 Gm Powd 17 GM PO DAILY for Constipation, #1 CAN 0 Refills Mix and dissolve one measuring cap-ful (17 grams) in water or juice. Psyllium (Metamucil) 520 Mg Cap 1 CAP PO BID Sennosides (Sennosides) 8.6 Mg Tab 8.6 MG PO HS for Constipation, TAB 0 Refills Tiotropium Inh (Spiriva Handihaler) 18 Mcg Cap 18 MCG INH DAILY for COPD, #30 CAP 0 Refills 1 capsule = 18 mcg Trazodone (Trazodone) 100 Mg Tablet 100 MG PO HS for Control Depression, #30 TAB 0 Refills Solange Parks MD Apr 01, 2017 14:15
--- NOTE | 2017-04-01 14:22 | EKG ---
Date Performed: 04/01/2017 Time Performed: 10:39:22 PTAGE: 76 years EKG: Baseline artifact present Sinus rhythm With premature ectopic beats POSSIBLE RIGHT VENTRICULAR CONDUCTION DELAY NONSPECIFIC ST & T-WAVE ABN ORMALITY ABNORMAL RHYTHM ECG Compared to prior electrocardiogram, rate has increased. Both EKGs have baseline artifact. PREVIOUS TRACING : 04/01/2017 05.15 DOCTOR: Duncan Hurst Interpretating Date/Time 04/01/2017 14:20:39
[2017-04-01] MEDS: LORazepam 0.5 MG TAB PO PRN (18:22)
[2017-04-01] MEDS ORDERED: REMOVE OLD PATCH T-DERMAL SCH (21:00)
[2017-04-01] MEDS: traZODone HCL 100 MG TAB PO SCH (21:31)
[2017-04-01] MEDS: MELATONIN 5 MG TAB PO SCH (21:32)
[2017-04-01] MEDS: SENNOSIDES 8.6 MG TAB PO SCH (21:32)
[2017-04-01] MEDS: ATORVASTATIN 10 MG TAB PO SCH (21:36)
[2017-04-02] VITALS: BP 120/54; PULSE 63; RESP 16; TEMP 97.1; O2SAT 95
[2017-04-02] MEDS: ENOXAPARIN SODIUM 30 MG/0.3 ML SYRINGE SQ SCH (02:01)
[2017-04-02 04:00] VITALS: BP 147/72; PULSE 57; RESP 17; TEMP 99; O2SAT 97
[2017-04-02] MEDS: LACTATED RINGER'S 1000 ML INJ 1,000 ML IV SCH (04:23)
[2017-04-02] MEDS: LEVOTHYROXINE SODIUM 125 MCG TAB PO SCH (06:13)
--- NOTE | 2017-04-02 08:00 | PD.ORT.PN ---
Subjective Subjective Remarks pt slightly confused, hard of hearing has no complaints Objective Vitals Vital Signs Date Time Temp Pulse Resp B/P (MAP) Pulse Ox O2 Delivery O2 Flow Rate FiO2 04/02/17 04:00 99.0 57 17 147/72 (97) 97 04/02/17 00:00 97.1 63 16 120/54 (76) 95 04/01/17 20:00 96.2 76 17 133/60 (84) 96 04/01/17 19:45 98 Nasal Cannula 4.00 04/01/17 15:24 96.5 95 18 130/69 (89) 90 04/01/17 11:50 97.5 92 18 129/60 (83) 91 I/O 04/01/17 04/01/17 04/01/17 04/02/17 04/02/17 04/02/17 07:00 15:00 23:00 07:00 15:00 23:00 Intake Total 240 ml 660 ml 480 ml 480 ml Balance 240 ml 660 ml 480 ml 480 ml Intake Oral 240 ml 660 ml 480 ml 480 ml # Voids 1 3 2 1 # Bowel Movements 0 Result Diagram: 04/01/17 0535 03/31/17 0747 Objective Remarks seen by Dr. Yony Merlos Incision completely dry. No significant swelling. No pain to palpation. No abnormal distal swelling or calf tenderness. Assessment & Plan Assessment and Plan Right femoral neck fracture, subcapital, [place] 1 ORIF right hip fracture with multiple screws: POD #2 PLAN: This patient was on hospice. Her DNR has been rescinded allowing treatment of her right hip condition. I spoke at length with her son about the condition and treatment options. We recognized that without surgical treatment, this will likely displace becoming a very painful condition which may inhibit the ability for proper and adequate nursing care this patient and her stage of her life. Surgical treatment has risks but this is relatively limited access exposure with a 1 inch incision and percutaneous screws across the right femoral neck. The biggest concern will likely be anesthetic concerns. Looks stable. [place] for pain. Lovenox for DVT prophylaxis if agreeable with medical staff. Discharge today to SNF Toe-touch weightbearing. No dressing change. Follow-up in 2 weeks Sarita Nogueira Apr 02, 2017 08:00
[2017-04-02 08:30] VITALS: BP 130/60; PULSE 62; RESP 19; TEMP 97.3; O2SAT 95
[2017-04-02 08:49] VITALS: O2SAT 93
[2017-04-02] MEDS: RESP: ALBUTEROL 2.5 MG/IPRATROPIUM 0.5 MG NEB (SCH) NEB ×2 (08:49→13:00)
[2017-04-02] MEDS: SODIUM CHLORIDE 0.9% FLUSH 10 ML FLUSH IV FLUSH SCH (09:00)
[2017-04-02] MEDS: BRIMONIDINE TARTRATE 0.2% OPHT SOLN 5 ML BTL LEFT EYE SCH (09:00)
[2017-04-02] MEDS: REMOVE OLD PATCH T-DERMAL SCH (09:00)
[2017-04-02] MEDS: TIMOLOL MALEATE 0.5% OPHT SOLN 5 ML BTL LEFT EYE SCH (09:00)
[2017-04-02] MEDS: PSYLLIUM FIBER SF/GF 6 GM POWD PKT PO SCH (09:00)
[2017-04-02] MEDS: PANTOPRAZOLE SOD 40 MG DELAYED RELEASE TAB PO SCH (09:13)
[2017-04-02] MEDS: LORazepam 0.5 MG TAB PO PRN (09:13)
[2017-04-02] MEDS: MAGNESIUM HYDROXIDE SUSP 30 ML CUP PO SCH (09:13)
[2017-04-02] MEDS: GABAPENTIN 100 MG CAP PO SCH ×2 (09:13→12:56)
[2017-04-02] MEDS: DULoxetine HCl DR 60 MG CAP PO SCH (09:13)
[2017-04-02] MEDS: LISINOPRIL 20 MG TAB PO SCH (09:13)
[2017-04-02] MEDS: POLYETHYLENE GLYCOL 17 GM PKG PO SCH (09:13)
[2017-04-02] MEDS: MEGESTROL ACETATE SUSP 400 MG/10 ML CUP PO SCH (09:13)
[2017-04-02] MEDS: busPIRone HCL 10 MG TAB PO SCH (09:13)
[2017-04-02] MEDS: TIOTROPIUM BROMIDE 18 MCG INH INH SCH (09:14)
[2017-04-02] MEDS: ACETAMINOPHEN/HYDROcodone 325 MG/7.5 MG TAB PO PRN (09:14)
[2017-04-02] MEDS: ASPIRIN 81 MG CHEW TAB PO SCH (09:14)
[2017-04-02] MEDS: FLUTICASONE 100 MCG/VILANTEROL 25 MCG INHALER INH SCH (09:14)
[2017-04-02] MEDS: NICOTINE 21 MG/24 HR PATCH T-DERMAL SCH (09:17)
[2017-04-02] MEDS: FUROSEMIDE 20 MG TAB PO SCH (09:26)
[2017-04-02 12:00] VITALS: BP 140/67; PULSE 86; RESP 18; TEMP 96.6; O2SAT 97
[2017-04-02] MEDS: ONDANSETRON HCL 4 MG/2 ML VIAL IVP PRN (12:20)
[2017-04-02] MEDS ORDERED: PROMETHAZINE INJ 25 MG/ML VIAL IM ONE (12:30)
[2017-04-02] MEDS ORDERED: ONDANSETRON ODT 4 MG TAB PO ONE (12:30)
--- NOTE | 2017-04-02 12:44 | EKG ---
Date Performed: 04/01/2017 Time Performed: 17:17:03 PTAGE: 76 years EKG: Sinus rhythm POSSIBLE RIGHT VENTRICULAR CONDUCTION DELAY NONSPECIFIC T-WAVE ABNORMALITY BORDERLINE ECG Compared t o PREVIOUS TRACING , ectopic beats no longer present, otherwise no significant change. PREV IOUS TRACIN04/01/2017 10.39 DOCTOR: Alex Garcia Interpretating Date/Time 04/02/2017 12:43:01
[2017-04-02] MEDS: RESP: ALBUTEROL 2.5 MG/IPRATROPIUM 0.5 MG NEB (PRN) NEB (13:00)
[2017-04-02] MEDS ORDERED: BISACODYL 10 MG SUPP RECTAL ONE (14:45)
== END 2017-04-02 17:02 | DRG 481 ==
LOC: NEPE 15:16 → NEDA 19:24 → N06B 21:11 → N06A 03-31 18:55
PROVIDERS: ADMIT Hospitalist; ATTEND Hospitalist
PROC: 0QS604Z Reposition Right Upper Femur with Internal Fixation Device, Open Approach (ICD-10-PCS; principal; 2017-03-31 14:04)
DX: S72.011A Unspecified intracapsular fracture of right femur, initial encounter for closed fracture (principal); J96.10 Chronic respiratory failure, unspecified whether with hypoxia or hypercapnia; Z99.81 Dependence on supplemental oxygen; J44.9 Chronic obstructive pulmonary disease, unspecified; F17.213 Nicotine dependence, cigarettes, with withdrawal; I10 Essential (primary) hypertension; E03.9 Hypothyroidism, unspecified; E78.5 Hyperlipidemia, unspecified; F41.9 Anxiety disorder, unspecified; I25.10 Atherosclerotic heart disease of native coronary artery without angina pectoris; D64.9 Anemia, unspecified; F32.9 Major depressive disorder, single episode, unspecified; M19.90 Unspecified osteoarthritis, unspecified site; H40.9 Unspecified glaucoma; H91.93 Unspecified hearing loss, bilateral; K59.00 Constipation, unspecified; I25.2 Old myocardial infarction; Z79.899 Other long term (current) drug therapy; Z79.51 Long term (current) use of inhaled steroids; Z79.02 Long term (current) use of antithrombotics/antiplatelets; Z86.73 Personal history of transient ischemic attack (TIA), and cerebral infarction without residual deficits; Z95.5 Presence of coronary angioplasty implant and graft; Z90.710 Acquired absence of both cervix and uterus; W18.30XA Fall on same level, unspecified, initial encounter
CPT/HCPCS: 36600; 70450; 71010; 72125; 73502; 76000; 80048; 80053; 81001; 82550; 82552; 82805; 84484; 85014; 85018; 85025; 85576; 85610; 85730; 86850; 86900; 86901; 93005; 94150; 94640; 94664; J0131; J0690; J1580; J1650; J2060; J2270; J2405; J2930; J7120